=== PATIENT | female | born 1960 | race Caucasian/White ===

== ENCOUNTER 2018-12-12 18:50 | Inpatient (IN) | payer BC ==
[2018-12-12] MEDS ORDERED: NS 0.9% 1000 ML** 1,000 ML IV ONE ×2 (19:14→19:35)
--- NOTE | 2018-12-12 19:14 | ED ---
Abdominal Pain/Female - HPI Summary HPI Summary: This pt is a 58 Y/O F presenting to [facility] from [facility] for diverticulosis. She states that her symptoms started on 12/03/18 when she lost her ability to taste. She stated that on 12/03/18 at night she became nauseas and started vomiting. she started to experience chills which resulted in her taking a hot shower and covering herself with blankets for the weekend. She developed a fever of 100.8 F throughout the weekend from 12/04/18 to 12/05/18. She became fatigued at 12/05/18. She had a urine analysis from her primary care physician and was put on an ABX treatment. She states that on 12/09/18 she had mucus in her stool. She has no alleviating or aggravating factors. She has a PMHx of HTN, and breast cancer. Her family has a Hx of HTN and DM. - History of Current Complaint Chief Complaint: EDAbdPain Stated Complaint: ABDOMINAL ISSUES PER EMS Time Seen by Provider: 12/12/18 19:07 Hx Obtained From: Patient Onset/Duration: Sudden Onset, Lasting Days - 10, Still Present, Worse Since - onset Timing: Constant Severity Initially: Severe Severity Currently: Severe Pain Intensity: 8 Pain Scale Used: 0-10 Numeric Location: Discrete At: RLQ Radiates: No Aggravating Factor(s): Nothing Alleviating Factor(s): Nothing Associated Signs and Symptoms: Positive: Fever - 100.8 F, Urinary Symptoms, Decreased Appetite, Nausea, Vomiting, Other: - lost ability to taste, chills, mucus in stool Allergies/Adverse Reactions: Allergies Allergy/AdvReac Type Severity Reaction Status Date / Time Adhesive Tape Allergy Rash Verified 12/12/18 19:16 ciprofloxacin Allergy Rash And Verified 12/12/18 19:16 Itching clindamycin Allergy Rash And Verified 12/12/18 19:16 Itching pantoprazole Allergy Rash And Verified 12/12/18 19:16 Itching Penicillins Allergy Rash And Verified 12/12/18 19:16 Itching sulfamethoxazole Allergy Rash And Verified 12/12/18 19:16 Itching Home Medications: Home Medications Calcium Citrate/Vitamin D2 [Calcium with Vit D Tablet] 1 each PO DAILY 12/12/18 [History Confirmed 12/12/18] Ferrous Sulfate TAB* 325 mg PO BID 12/12/18 [History Confirmed 12/12/18] Folic Acid 1 mg PO DAILY 12/12/18 [History Confirmed 12/12/18] Furosemide TAB* [Lasix TAB*] 20 mg PO DAILY 12/12/18 [History Confirmed 12/12/18 ] Meloxicam(NF) [Mobic(NF)] 7.5 mg PO DAILY 12/12/18 [History Confirmed 12/12/18] Methotrexate* 50 mg .SEE ORDER ONCE 12/12/18 [History Confirmed 12/12/18] Metoprolol Tartrate TAB* [Lopressor TAB*] 25 mg PO BID 12/12/18 [History Confirmed 12/12/18] Nitrofurantoin Macrocrystals* [Macrodantin 100 mg*] 100 mg PO BID 12/12/18 [ History Confirmed 12/12/18] Omeprazole (Nf) [Prilosec (NF)] 40 mg PO DAILY 12/12/18 [History Confirmed 12/12] predniSONE TAB* [Deltasone TAB*] 5 mg PO DAILY 12/12/18 [History Confirmed 12/12] PMH/Surg Hx/FS Hx/Imm Hx Previously Healthy: Yes Endocrine/Hematology History: Denies: Hx Diabetes Cardiovascular History: Reports: Hx Hypertension Musculoskeletal History: Reports: Hx Rheumatoid Arthritis - Cancer History Cancer Type, Location and Year: Breast cancer, remission 2006 - Surgical History Surgical History: Yes Surgery Procedure, Year, and Place: reconstruction of breast. back surgery. complete hip replacement. foot surgery. 2 C-sections - Immunization History Immunizations Up to Date: Yes Infectious Disease History: No Infectious Disease History: Denies: Traveled Outside the [place] in Last 30 Days - Family History Known Family History: Positive: Hypertension, Diabetes, Other - CA - Social History Occupation: Unemployed Lives: With Family Alcohol Use: Occasionally Hx Substance Use: No Substance Use Type: Reports: None Hx Tobacco Use: Yes Smoking Status (MU): Former Smoker Length of Time of Smoking/Using Tobacco: Quit 1984 Review of Systems Positive: Fever - 100.8, Chills Positive: Abdominal Pain - RLQ, Vomiting, Nausea Positive: other - mucus in stool Neurological: Other - unable to taste, decreased appetite All Other Systems Reviewed And Are Negative: Yes Physical Exam - Summary Physical Exam Summary: Constitutional: Well-developed, Well-nourished, Alert. (-) Distressed Skin: Warm, Dry HENT: Normocephalic; Atraumatic Eyes: Conjunctiva normal Neck: Musculoskeletal ROM normal neck. (-) JVD, (-) Stridor, (-) Tracheal deviation Cardio: Rhythm regular, rate normal, Heart sounds normal; Intact distal pulses; The pedal pulses are 2+ and symmetric. Radial pulses are 2+ and symmetric. (-) Murmur Pulmonary/Chest wall: Effort normal. (-) Respiratory distress, (-) Wheezes, (-) Rales Abd: Soft, Severe lower abdominal tenderness, worse in RLQ, (-) Distension, (-) Guarding, (-) Rebound Musculoskeletal: (-) Edema Lymph: (-) Cervical adenopathy Neuro: Alert, Oriented x3 Psych: Mood and affect Normal Triage Information Reviewed: Yes Vital Signs On Initial Exam: Initial Vitals Temp Pulse Resp BP Pulse Ox 98.5 F 126 18 136/111 96 12/12/18 18:54 12/12/18 18:54 12/12/18 18:54 12/12/18 18:54 12/12/18 18:54 Vital Signs Reviewed: Yes Diagnostics - Vital Signs Vital Signs Temp Pulse Resp BP Pulse Ox 12/12/18 18:54 98.5 F 126 18 136/111 96 - Laboratory Result Diagrams: 12/14/18 05:36 12/14/18 05:36 Lab Statement: Any lab studies that have been ordered have been reviewed, and results considered in the medical decision making process. Abdominal Pain Fem Course/Dx - Course Course Of Treatment: Patient was transferred from an outside hospital with pelvic abscess likely due to a missed appendicitis. Upon arrival, patient is tachycardic but overall well-appearing with no signs of peritonitis. Patient had a normal lactate here. Patient was given IV fluids and antibiotics. Surgery was consult today and they recommended talking to IR to see if the abscess was amenable to drainage. IR recommended a repeat CT scan with oral and rectal contrast. He did not think abscess was got to be minimal to drainage and did not think was emergency room took her overnight. Patient is admitted to medicine for further management. - Diagnoses Provider Diagnoses: Pelvic abscess, Ruptured appendicitis - Provider Notifications Discussed Care Of Patient With: Gabby Weeks Time Discussed With Above Provider: 21:45 Instructed by Provider To: Admit As Inpatient - Pending a surgery consult Admit/Transition Orders Completed By ED Provider: Yes Discharge ED - Sign-Out/Discharge Documenting (check all that apply): Patient Departure - admitted Patient Received Moderate/Deep Sedation with Procedure: No - Discharge Plan Condition: Stable Disposition: ADMITTED TO [facility] - Billing Disposition and Condition Condition: STABLE Disposition: Admitted to [facility] - Attestation Statements Document Initiated by Scribe: Yes Documenting Scribe: Tito Rice Provider For Whom [place] is Documenting (Include Credential): Manuel Carrion MD Scribe Attestation: Tito Castillo, scribed for Manuel Carrion MD on 12/14/18 at 1118. Scribe Documentation Reviewed: Yes Provider Attestation: The documentation as recorded by the Tito venegas accurately reflects the service I personally performed and the decisions made by Manuel ferro MD Status of Scribe Document: Viewed
[2018-12-12] MEDS ORDERED: metroNIDAZOLE IV 500 MG/100ML* 500 MG/100 ML BAG IVPB ONE (19:25)
[2018-12-12] MEDS ORDERED: ED cefTRIAXone 1 GM/50 ML 1 GM/50 ML PREMIX.SET IVPB ONE (19:25)
[2018-12-12] MEDS ORDERED: Morphine INJ* 2 MG/ML 1 ML SYRINGE (TWO MG - NEW SYRINGE VERSION) IV PRN (23:35)
[2018-12-12] MEDS ORDERED: PROCHLORPERAZINE INJ 5 MG/ML 2 ML VIAL IV PRN (23:35)
[2018-12-12] MEDS: LACTATED RINGERS IV ONE (23:36)
[2018-12-13 00:30] LABS: Hematocrit 39 % (35-47); Hemoglobin 12.6 g/dL (12.0-16.0); Mean Corpuscular HGB Conc 33 g/dL (31-36); Mean Corpuscular Hemoglobin 31 pg (27-31); Mean Corpuscular Volume 95 fL (80-97); Mean Platelet Volume 6.9 fL (7.4-10.4); Platelet Count 295 10^3/uL (150-450); Red Blood Count 4.07 10^6 /uL (3.70-4.87); Red Cell Distribution Width 18 % (10-15); White Blood Count 23.5 10^3/uL (3.5-10.8)
[2018-12-13 00:47] LABS: Albumin/Globulin Ratio 1.1 (1-3); BUN/Creatinine Ratio 10.9 (8-20); Calcium 8.3 mg/dL (8.6-10.3); EGFR African American 115.7 (>60); EGFR Non-African American 95.6 (>60); Globulin 2.8 g/dL (2-4); Potassium 3.8 mmol/L (3.5-5.0); Total Bilirubin 0.7 mg/dL (0.2-1.0); Total Protein 5.8 g/dL (6.4-8.9)
[2018-12-13] MEDS: LACTATED RINGERS IV ONE ×3 (01:06→03:53)
[2018-12-13 01:07] LABS: ABS Eosinophils 0.1 10^3/ul (0-0.6); ABS Lymphocytes 1.8 10^3/ul (1.0-4.8); ABS Monocytes 2.3 10^3/ul (0-0.8); ABS Neutrophils 19.1 10^3/ul (1.5-7.7); Eosinophil % 0.6 %; Lymphocyte % 7.9 %; Nucleated Red Blood Cells % 0.1
[2018-12-13] MEDS: Hydrocortisone INJ* 100 MG VIAL IV SCH ×3 (01:08→21:09)
[2018-12-13] MEDS: Cefepime 2 GM in Dextrose(*) 2 GM/50 ML BAG IV SCH ×3 (01:20→22:44)
[2018-12-13 01:22] LABS: Urine Appearance Clear; Urine Bacteria Absent (Absent); Urine Bilirubin Negative (Negative); Urine Blood Negative (Negative); Urine Color Yellow; Urine Glucose Negative (Negative); Urine Ketones Negative (Negative); Urine Nitrite Negative (Negative); Urine Protein Negative (Negative); Urine Red Blood Cell Absent (Absent); Urine Squamous Epithelial Cell Present (Absent); Urine Urobilinogen Negative (Negative); Urine White Blood Cell Trace(0-5/hpf) (Absent)
--- NOTE | 2018-12-13 02:19 | CONS ---
CONSULTATION REPORT: DATE OF CONSULT: 12/12/18 REASON FOR CONSULTATION: Multiple pelvic abscesses. HISTORY OF PRESENT ILLNESS: Ely Richardson is a 58-year-old female with a history of rheumatoid arthritis on methotrexate and prednisone, who reports onset of right lower quadrant abdominal pain approximately 10 to 11 days ago. 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 The patient reports that she had been on antibiotics for right leg pain and concern for infection as she had hip replacement, but the antibiotics were completed about 12 days ago. The patient reports poor appetite, but no issues with nausea, vomiting, or diarrhea. She states that the pain became progressively more severe. She was seen by her primary care provider, Juno Anthony and ended up having diagnosis of urinary tract infection for which she was placed on additional antibiotics. She had been taking those for the past 4 days. Her pain continued to worsen and her decided to bring her to the emergency room at [facility] today. There, she had laboratory evaluation and radiographic evaluation with findings of leukocytosis at 26,[address] scan without contrast that demonstrated pelvic abscesses. The patient does report a history of fever to 100.9. From [facility], she was transferred to [facility] Emergency Department and evaluation proceeded with a repeat CT scan of the abdomen and pelvis with rectal and oral contrast. On that study, the patient was noted to have multiple pelvic collections and no clear etiology was identified. The patient is being admitted to the hospitalist service for IV antibiotics and surgical consultation was requested. PAST MEDICAL HISTORY: Significant for: 1. Rheumatoid arthritis. 2. Breast cancer. 3. Hypertension. 4. Colon polyps, she had a colonoscopy in 2014, is due next year. PAST SURGICAL HISTORY: 1. Right total hip replacement. 2. section x2. 3. Mastectomy with TRAM flap reconstruction. HOME MEDICATIONS: 1. Prednisone 5 mg p.o. daily. 2. Ferrous sulfate 325 mg b.i.d. 3. Methotrexate 2.5 mg injection. 4. Omeprazole 40 mg daily. 5. Amitriptyline 25 mg twice daily. 6. Meloxicam 7.5 mg daily. 7. Folate 1 mg daily. 8. Furosemide 20 mg daily. 9. Metoprolol 25 mg twice daily. 10. Calcium with vitamin D and K 1 tablet daily. 11. Macrodantin 100 mg p.o. twice daily. ALLERGIES: Allergies are reported to multiple antibiotics including CIPRO, CLINDAMYCIN, PENICILLINS, BACTRIM. She also has allergy to PANTOPRAZOLE, which causes hives and surgical tape, which causes blisters. SOCIAL HISTORY: She is an ex-smoker who quit in 1984. She occasionally drinks alcohol. Denies drug use. 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 FAMILY HISTORY: Her mother had breast cancer. Sister had breast cancer. Father was healthy. REVIEW OF SYSTEMS: A 14-point review of systems was completed and significant for the above mentioned issues. Otherwise is negative. She specifically denies inflammatory bowel disease, Crohn's disease, colitis. PHYSICAL EXAMINATION: Physical examination reveals a 5 feet 5 inches female, 235 pounds, BMI 31.9. Vital signs: Temperature of 98.5 initially, then 97.2 with pulse of 116; respirations of 20; blood pressure 111/74; O2 sat on room air of 94%. Head is normocephalic and atraumatic. Sclerae anicteric. Abdomen has a large transverse lower abdominal scar and periumbilical scar. Bowel sounds are present. Abdomen is soft. There is tenderness in the right lower quadrant greater than left lower quadrant. No tenderness to percussion. Extremities are warm. DIAGNOSTIC STUDIES/LAB DATA: As reported above, WBCs are 26. Lactate performed at [facility] was 1.3. CT imaging was reviewed by me. IMPRESSION: A 58-year-old female with 10- to 11-day history of right lower quadrant abdominal pain, progressive and now finding of multiple abscesses on CT imaging with tachycardia, leukocytosis, and this is most suspicious for delayed presentation of appendicitis with complication of pelvic abscess. PLAN/RECOMMENDATIONS: The patient is being admitted for IV antibiotics and we kept n.p.o. and given IV hydration. I will review the imaging with Radiology in the morning to see if there is any benefit to percutaneous drainage. Otherwise, the patient will be likely best served with surgical exploration to deal with multiple abscesses and treat the etiology of infection. I did discuss this with the patient and her who accompanied her. We will follow closely. [id number]/CPS #: [id number] [facility] MEDICAL CENTERIvy
[2018-12-13] MEDS: metroNIDAZOLE IV 500 MG/100ML* 500 MG/100 ML BAG IVPB SCH ×4 (03:50→21:16)
[2018-12-13] MEDS: Heparin VIAL(*) 5000 UNITS/ML VIAL (FIVE THOUSAND) SUBCUT SCH ×3 (05:20→22:51)
--- NOTE | 2018-12-13 05:38 | HP ---
CC: Juno Anthony Jr, PA-C, [facility] * HISTORY AND PHYSICAL: DATE OF ADMISSION: 12/12/18 PRIMARY CARE PROVIDER: Juno Anthony Jr, PA-C, at [facility]. CHIEF COMPLAINT: Abdominal pain. HISTORY OF PRESENT ILLNESS: Ms. Richardson is a 58-year-old female with a past medical history of obesity; breast cancer, status post mastectomy, chemo and radiation; arthritis, who states around 12/03/18, she had a change in the taste in her mouth followed by nausea and vomiting. The next day, she started to have chills, fever that she measures at 100.8 and increased urinary frequency. She states that usually when she has an UTI, she has increased frequency with dysuria but this time she just had increased frequency. She reports going to her primary care provider, being diagnosed with a urinary tract infection and was started on nitrofurantoin. The patient states that the urinary frequency improved, but the abdominal pain became worse especially on her right lower quadrant that she rates at 8/10. She was seen at [facility] with this complaint and she denied vaginal discharge, vomiting, or diarrhea. A CT of the abdomen without contrast showed poorly defined air fluid collection in the central pelvis slightly to the right of midline measuring 4.8 cm, difficult to distinguish from adjacent unopacified thick-walled small bowel loops, and a contiguous approximately 5- to 6-cm collection posterior to the bladder dome either obscuring or associated with the uterine fullness. Laboratory tests done at that time revealed a white cell count of 26,000 and the patient was also tachycardic, so she was sent to our emergency room for further evaluation. At the time of my interview, she states that she is feeling better, but she had received pain medication, so her pain was down to a 4. PAST MEDICAL/SURGICAL HISTORY: 1. Breast cancer, status post mastectomy with reconstruction. The reconstruction was done with graft obtained from her abdomen. Chemo and radiation therapy. The patient states she was on tamoxifen for 10 years and for the past 2 years has not needed any further medication. 2. Hypertension. 3. Rheumatoid arthritis. 4. Status post spinal surgery. 5. Status post right hip placement. 6. Status post 2 C-sections. MEDICATION LIST: 1. Amitriptyline 25 mg p.o. b.i.d. 2. Calcium plus vitamin D 1 tablet p.o. daily. 3. Ferrous sulfate 325 mg p.o. b.i.d. 4. Folic acid 1 mg p.o. daily. 5. Furosemide 20 mg p.o. daily. 6. Meloxicam 7.5 mg p.o. daily. 7. Methotrexate 50 mg weekly. 8. Metoprolol tartrate 25 mg p.o. b.i.d. 9. Nitrofurantoin 100 mg p.o. b.i.d. 10. Omeprazole 40 mg p.o. daily. 11. Prednisone 5 mg p.o. daily. ALLERGIES: The patient experienced rashes with ADHESIVE TAPE, CIPROFLOXACIN, CLINDAMYCIN, PANTOPRAZOLE, PENICILLIN, SULFAMETHOXAZOLE. FAMILY HISTORY: There is a positive family history of hypertension and diabetes. SOCIAL HISTORY: No history of alcohol or drug use. The patient is a former smoker, she quit in 1984. Surrogate decision maker is her , Cory Richardson, phone number is [phone]. REVIEW OF SYSTEMS: A 14-point review of systems was performed, and all the pertinent negatives and positive findings are in the HPI. PHYSICAL EXAMINATION GENERAL: The patient is a pleasant obese lady, lying in the ED stretcher, in no acute distress. VITAL SIGNS: Temperature 97.2, heart rate is 116, respiratory rate is 20, oxygen saturation 94% on room air, blood pressure is 111/74. HEENT: Pupils are equal. Dry mucous membranes. CHEST: Breath sounds bilaterally with no added sounds, diminished in bases. CVS: Normal S1, S2. Regular rate and rhythm. ABDOMEN: Obese, soft with right lower quadrant and left lower quadrant tenderness, but there is no guarding, no rebound. Bowel sounds are present. The patient has old surgical scar extending from right lower quadrant, epigastrium, and left lower quadrant from her breast reconstruction. There was the graft area. She has a palpable nodule in the right lower quadrant that appears to be related to the surgical scar from that procedure. EXTREMITIES: No edema. NEURO: She is alert and oriented x3. Able to move all 4 extremities. DIAGNOSTIC STUDIES/LAB DATA: At [facility], the patient had a chemistry that showed a sodium of 135, potassium of 3.7, chloride of 99, bicarb 26, BUN of 10, creatinine of 0.9, lactic acid was 1.5, glucose 124, calcium 9.5 , magnesium 1.7. LFTs showed a total bilirubin of 1. AST of 20, ALT of 6, alk phos of 108. Troponin was 0.01. CBC showed a WBC of 26.2, hemoglobin of 14, hematocrit of 40, platelets of 381 with 87% neutrophils. Urinalysis showed trace LE. CT abdomen and pelvis without contrast done at [facility] showed pelvic abscesses and free fluid, source not identified. She underwent a CT with p.o. and rectal contrast in our emergency room that showed minimal sigmoid diverticulosis with question of mild mid sigmoid diverticulitis. Multilocular collection of fluid with some areas of gas consistent with multilocular abscesses within the pelvis with some tangential contact to the sigmoid colon and may be related to prior diverticulitis, status post hysterectomy. ASSESSMENT AND PLAN: Ms. Richardson is a 58-year-old female with a past medical history of obesity; hypertension; rheumatoid arthritis; breast cancer, status post mastectomy, chemo and radiation, who was transferred to our emergency room with sepsis secondary to intra-abdominal abscesses. 1. Sepsis. The patient meets sepsis criteria with tachycardia and leukocytosis. At this point, there is no sign of end-organ damage. Source is the intra-abdominal process. She will receive aggressive IV fluid resuscitation. We will monitor her CBC, BMP, and lactic acid. 2. Intra-abdominal abscesses. Etiology is unclear at this time. At [facility], there is some question that this could be associated with appendicitis , but she also has diverticulosis. In any case, considering her allergies, the patient will be started on cefepime and metronidazole for this intra-abdominal process. Surgery consultation was requested with Dr. Hernández and recommendation at this point is to see if Interventional Radiology will be able to drain those abscesses. I contacted Dr. Resendiz and he was already aware on the need for IR drainage of the abscess. We will continue pain management and I will keep the patient n.p.o. for now. 3. Rheumatoid arthritis. Her methotrexate will be held in the setting of infection. She has been on the steroids chronically, so I will change her to hydrocortisone IV to try to support her blood pressure. 4. Hypertension. The patient's blood pressure is normal but on the lower side at this time, so I am going to hold her metoprolol. 5. DVT prophylaxis. The patient has a score of 4 on DVT Prophylaxis Risk Assessment Guide and she will be started on subcutaneous heparin. 6. Code status is full. TIME SPENT: Approximately 60 minutes was spent with the patient interview, medical records review, physical examination to complete the admission, more than half of this time was spent [id number] with the patient and coordination of care. [id number]/CPS #: [id number] [facility]TDD
[2018-12-13 06:48] LABS: ABS Lymphocytes 0.7 10^3/ul (1.0-4.8); ABS Monocytes 0.7 10^3/ul (0-0.8); ABS Neutrophils 17.9 10^3/ul (1.5-7.7); Hematocrit 34 % (35-47); Hemoglobin 11.5 g/dL (12.0-16.0); Lymphocyte % 3.5 %; Mean Corpuscular HGB Conc 34 g/dL (31-36); Mean Corpuscular Hemoglobin 31 pg (27-31); Mean Corpuscular Volume 92 fL (80-97); Mean Platelet Volume 7.3 fL (7.4-10.4); Platelet Count 295 10^3/uL (150-450); Red Blood Count 3.66 10^6 /uL (3.70-4.87); Red Cell Distribution Width 17 % (10-15); White Blood Count 19.3 10^3/uL (3.5-10.8)
[2018-12-13 07:01] LABS: Calcium 8.7 mg/dL (8.6-10.3); EGFR African American 140.8 (>60); EGFR Non-African American 116.4 (>60); Potassium 3.6 mmol/L (3.5-5.0)
[2018-12-13] MEDS ORDERED: Amitriptyline TAB* 25 MG PO SCH (09:00)
[2018-12-13] MEDS ORDERED: Metoprolol Tartrate IV* 1 MG/ML 5 ML VIAL IV PRN (09:11)
[2018-12-13] MEDS: CMCS: Omeprazole CAP (NF) 20 MG CAP.DR PO SCH (09:24)
--- NOTE | 2018-12-13 10:07 | PN ---
Subjective Date of Service: 12/13/18 Interval History: Patient has no complaints this morning. Patient tells me she has not had abdominal pain since receiving morphine at 1 AM. Patient is scheduled to go to the OR this afternoon. She denies abd pain, nausea, fever/chills, chest pain, difficulty breathing. Patient reported to MARY Mary that she no longer takes amitriptyline and her home med list has been updated. Objective Active Medications: Amitriptyline HCl (Elavil Tab*) 25 mg PO BID [facility] Last Admin: 12/13/18 09:34 Dose: Not Given Heparin Sodium (Porcine) (Heparin Vial(*)) 5,000 units SUBCUT Q8HR [facility] Last Admin: 12/13/18 05:20 Dose: 5,000 units Hydrocortisone Sodium Succinate (Solu-Cortef*) 100 mg IV Q8H [facility] Last Admin: 12/13/18 09:25 Dose: 100 mg Cefepime HCl (Maxipime 2 Gm In Dextrose Duplex (*)) 2 gm in 50 mls @ 100 mls/ hr IV Q12H [facility] Last Admin: 12/13/18 01:20 Dose: 100 mls/hr Metronidazole/Sodium Chloride (Flagyl 500 Mg Ivpb*) 500 mg in 100 mls @ 100 mls /hr IVPB Q8H [facility] Last Admin: 12/13/18 03:50 Dose: 100 mls/hr Metoprolol Tartrate (Lopressor Iv*) 5 mg IV Q6H PRN PRN Reason: tachycardia or hypertension Morphine Sulfate (Morphine Inj (Syringe))*) 2 mg IV Q1H PRN PRN Reason: SEVERE PAIN Last Admin: 12/13/18 01:14 Dose: 2 mg Omeprazole (Prilosec Cap* (Nf)) 40 mg PO DAILY [facility] Last Admin: 12/13/18 09:24 Dose: 40 mg Prochlorperazine Edisylate (Compazine Inj*) 5 mg IV Q6H PRN PRN Reason: NAUSEA/VOMITING Vital Signs - 8 hr 12/13/18 12/13/18 12/13/18 02:10 03:45 07:15 Temperature 98.2 F 97.8 F Pulse Rate 108 89 Respiratory 18 24 20 Rate Blood Pressure 110/57 110/65 (mmHg) O2 Sat by Pulse 93 93 Oximetry 12/13/18 08:00 Temperature Pulse Rate Respiratory 20 Rate Blood Pressure (mmHg) O2 Sat by Pulse Oximetry Oxygen Devices in Use Now: None Appearance: Obese, white female, laying in bed, appearing in NAD Eyes: No Scleral Icterus, PERRLA Ears/Nose/Mouth/Throat: Mucous Membranes Moist Neck: NL Appearance and Movements; NL JVP Respiratory: Symmetrical Chest Expansion and Respiratory Effort, Clear to Auscultation Cardiovascular: NL Sounds; No Murmurs; No JVD, RRR Abdominal: NL Sounds; No Tenderness; No Distention Extremities: No Edema, No Clubbing, Cyanosis Skin: No Rash or Ulcers Neurological: Alert and Oriented x 3, NL Muscle Strength and Tone Result Diagrams: 12/13/18 06:37 12/13/18 06:37 Assess/Plan/Problems-Billing Assessment: 58 yo female with PMHx breast CA s/p mastectomy, XRT, and chemo; obesity; RA on chronic prednisone presents from [facility] with imaging concerning for multiple intra-abdominal abscesses. - Patient Problems (1) Sepsis Current Visit: Yes Status: Acute Comment: -secondary to intra-abdominal abscesses -presenting signs: tachycardia and leukocytosis -leukocytosis is downtrending. Tachycardia persisted overnight but is resolved this morning -remains afebrile (2) Intra-abdominal abscess Current Visit: Yes Status: Acute Code(s): K65.1 - PERITONEAL ABSCESS SNOMED Code(s): 33722172 Comment: -CT without contrast performed at [facility] demonstrated multiple pelvic abscesses -appreciate general surgery consult. Dr. Hernández suspects this is a complication of appendicitis -patient remains NPO for surgery today -continue cefepime, prn morphine, and prn compazine -abdomen exam is benign today and patient is comfortable (3) Rheumatoid arthritis Current Visit: Yes Status: Acute Code(s): M06.9 - RHEUMATOID ARTHRITIS, UNSPECIFIED SNOMED Code(s): 50447358 Comment: -holding home MTX in setting of infection -patient takes chronic prednisone for RA. Continuing IV hydrocortisone while patient is NPO (4) DVT prophylaxis Current Visit: Yes Status: Acute Code(s): Z29.9 - ENCOUNTER FOR PROPHYLACTIC MEASURES, UNSPECIFIED SNOMED Code(s): 840437787 Comment: -continue heparin subq TID (5) Full code status Current Visit: Yes Status: Acute Code(s): Z78.9 - OTHER SPECIFIED HEALTH STATUS SNOMED Code(s): 397593452
[2018-12-13] MEDS: Lactated Ringers 1000 ML Bag* 1,000 ML IV SCH ×2 (10:48→20:15)
[2018-12-13] MEDS ORDERED: Metoprolol Tartrate IV* 1 MG/ML 5 ML VIAL IV ONE (12:48)
--- NOTE | 2018-12-13 12:55 | PN ---
Progress Note - Progress Note Date of Service: 12/13/18 SOAP: Subjective: She feels better after IV fluid and receiving pain meds No N/V Pain mainly in right lower quadrant Objective: Temp Pulse Resp BP Pulse Ox 97.5 F 91 20 133/80 94 12/13/18 11:15 12/13/18 11:15 12/13/18 11:15 12/13/18 11:15 12/13/18 11:15 Intake & Output 12/11/18 12/12/18 12/13/18 12/14/18 06:59 06:59 06:59 06:59 Intake Total 4567 Output Total 700 Balance 3867 Weight 244 lb 11.2 oz Intake: IV Fluids 4397 LR 3197 IVPB 170 LR 170 Oral 0 Output: Urine 700 PEX: Comfortable Lungs are cler Abd is soft and slightly distended. Bowel sounds are present but hypoactive. Lower suprapubic transverse incision iliac crest to iliac crest, circular incision around the umbilicus. Tender lower abdomen with guarding, worse on the right lower quadrant. Laboratory Results - last 24 hr 12/12/18 12/13/18 12/13/18 20:58 00:21 00:21 WBC 23.5 H RBC 4.07 Hgb 12.6 Hct 39 MCV 95 MCH 31 MCHC 33 RDW 18 H Plt Count 295 MPV 6.9 L Neut % (Auto) 81.4 Lymph % (Auto) 7.9 Carver % (Auto) 10.0 Eos % (Auto) 0.6 Baso % (Auto) 0.1 Absolute Neuts (auto) 19.1 H Absolute Lymphs (auto) 1.8 Absolute Monos (auto) 2.3 H Absolute Eos (auto) 0.1 Absolute Basos (auto) 0.0 Absolute Nucleated RBC 0.0 Nucleated RBC % 0.1 Sodium 135 Potassium 3.8 Chloride 105 Carbon Dioxide 21 L Anion Gap 9 BUN 7 Creatinine 0.64 Est GFR ( Amer) 115.7 Est GFR (Non-Af Amer) 95.6 BUN/Creatinine Ratio 10.9 Glucose 99 Lactic Acid 1.3 Calcium 8.3 L Total Bilirubin 0.70 AST 15 ALT 4 L Alkaline Phosphatase 82 Total Protein 5.8 L Albumin 3.0 L Globulin 2.8 Albumin/Globulin Ratio 1.1 Urine Color Urine Appearance Urine pH Ur Specific [place] Urine Protein Urine Ketones Urine Blood Urine Nitrate Urine Bilirubin Urine Urobilinogen Ur Leukocyte Esterase Urine WBC (Auto) Urine RBC (Auto) Ur Squamous Epith Cells Urine Bacteria Urine Glucose 12/13/18 12/13/18 12/13/18 00:22 00:45 06:37 WBC 19.3 H RBC 3.66 L Hgb 11.5 L Hct 34 L MCV 92 MCH 31 MCHC 34 RDW 17 H Plt Count 295 MPV 7.3 L Neut % (Auto) 92.7 Lymph % (Auto) 3.5 Carver % (Auto) 3.6 Eos % (Auto) 0.0 Baso % (Auto) 0.2 Absolute Neuts (auto) 17.9 H Absolute Lymphs (auto) 0.7 L Absolute Monos (auto) 0.7 Absolute Eos (auto) 0.0 Absolute Basos (auto) 0.0 Absolute Nucleated RBC 0.0 Nucleated RBC % 0.0 Sodium Potassium Chloride Carbon Dioxide Anion Gap BUN Creatinine Est GFR ( Amer) Est GFR (Non-Af Amer) BUN/Creatinine Ratio Glucose Lactic Acid 0.5 Calcium Total Bilirubin AST ALT Alkaline Phosphatase Total Protein Albumin Globulin Albumin/Globulin Ratio Urine Color Yellow Urine Appearance Clear Urine pH 6.0 Ur Specific [place] 1.030 Urine Protein Negative Urine Ketones Negative Urine Blood Negative Urine Nitrate Negative Urine Bilirubin Negative Urine Urobilinogen Negative Ur Leukocyte Esterase Trace A Urine WBC (Auto) Trace(0-5/hpf) Urine RBC (Auto) Absent Ur Squamous Epith Cells Present A Urine Bacteria Absent Urine Glucose Negative 12/13/18 06:37 WBC RBC Hgb Hct MCV MCH MCHC RDW Plt Count MPV Neut % (Auto) Lymph % (Auto) Carver % (Auto) Eos % (Auto) Baso % (Auto) Absolute Neuts (auto) Absolute Lymphs (auto) Absolute Monos (auto) Absolute Eos (auto) Absolute Basos (auto) Absolute Nucleated RBC Nucleated RBC % Sodium 137 Potassium 3.6 Chloride 109 Carbon Dioxide 24 Anion Gap 4 BUN 7 Creatinine 0.54 Est GFR ( Amer) 140.8 Est GFR (Non-Af Amer) 116.4 BUN/Creatinine Ratio 13.0 Glucose 126 H Lactic Acid Calcium 8.7 Total Bilirubin AST ALT Alkaline Phosphatase Total Protein Albumin Globulin Albumin/Globulin Ratio Urine Color Urine Appearance Urine pH Ur Specific [place] Urine Protein Urine Ketones Urine Blood Urine Nitrate Urine Bilirubin Urine Urobilinogen Ur Leukocyte Esterase Urine WBC (Auto) Urine RBC (Auto) Ur Squamous Epith Cells Urine Bacteria Urine Glucose CT reviewed with radiology Multiple pelvic abscesses and free fluid, diverticular disease but no evidence of diverticulitis and do not appear to be associated with fluid/abscess collections. Appendix not clearly defined- ? free appendicolith in the pelvis. Assessment: Abdominal pain with pelvic abscesses/fluid collection, leukocytosis probably secondary to perforated appendicitis by history, delayed presentation. Plan: Reviewed care with patient and her and IR Dr. Resendiz-there does not appear to be an IR window for drainage and there appear to be several collections. Given the fact that she is on Methotrexate and prednisone she has been having abdominal pain for almost 2 weeks I feel the appropriate management is to proceed with an exploratory laparotomy with drainage of multiple abscesses and appendectomy. I do not feel that this process will respond to IV abx and I discussed this in more detail with her and she would like to proceed with surgery and gives her consent. Exploratory laparotomy with abscess drainage and appendectomy today. The procedure was discussed with her in detail, and the risks of, but not limited to, of bleeding, infection, abscess, bowel resection, ostomy, injury to peritoneal and retroperitoneal structures, risks of GA, blood clot, pulmonary embolism.
[2018-12-13] MEDS ORDERED: Bupivacaine 0.25% SDV PF* 10 ML VIAL INJ ONE (14:31)
[2018-12-13] MEDS ORDERED: Sodium Citrate/Citric Acid* 15 ML UDC ONE (14:36)
[2018-12-13] MEDS ORDERED: Midazolam* 1 MG/ML 2 ML VIAL (2 MG) ONE (14:55)
[2018-12-13] MEDS ORDERED: Propofol* 10 MG/ML 20 ML BTL ONE (14:55)
[2018-12-13] MEDS ORDERED: Succinylcholine* 20 MG/ML 10 ML VIAL ONE (14:55)
[2018-12-13] MEDS ORDERED: fentaNYL* 50 MCG/ML 5 ML VIAL (250 MCG VIAL) ONE (14:55)
[2018-12-13] MEDS ORDERED: Lidocaine 2% PF * 5 ML VIAL ONE (14:55)
[2018-12-13] MEDS ORDERED: Rocuronium* 10 MG/ML VIAL ONE (15:50)
[2018-12-13] MEDS ORDERED: fentaNYL* 50 MCG/ML 2 ML VIAL (100 MCG VIAL) ONE ×5 (15:53→19:27)
[2018-12-13] MEDS ORDERED: Ondansetron INJ* 2 MG/ML VIAL ONE (16:45)
[2018-12-13] MEDS ORDERED: PROCHLORPERAZINE INJ 5 MG/ML 2 ML VIAL ONE (16:46)
[2018-12-13] MEDS ORDERED: Sugammadex * 500 MG/5 ML VIAL IV PUSH ONE (16:49)
--- NOTE | 2018-12-13 17:07 | OP ---
Operative Report - Blank - Operative Report Date of Operation: 12/13/18 Note: OPERATIVE REPORT Pre-op: Abdominal pain, pelvic abscess, Leukocytosis Post-Op: Same, normal appearing appendix, pelvic abscess, pelvic inflammation Procedure:Open appendectomy, drainage of pelvic abscess, drain placement Surgeon: MD Travon Asst: Kelli Luong NP Anes: general with Dr. Rae IVF:1.7 liters of crystalloid EBL:min Specimen: Appendix Drain: #7 AHSAN drain Wound: 4 Findings: Pelvic abscess with surrounding inflammation, appendix with minimal inflammation, sigmoid colon unremarkable, small bowel and cecum unremarkable To PACU
[2018-12-13] MEDS ORDERED: Morphine 4 MG/ML VIAL (1 ml) 4 MG/ML VIAL IV PRN (17:31)
[2018-12-13] MEDS ORDERED: DiMENhydriNATE IV* 50 MG/ML VIAL IV PUSH PRN (17:31)
[2018-12-13] MEDS ORDERED: Ketorolac INJ* 30 MG/ML 1 ML VIAL IV PRN (17:31)
[2018-12-13] MEDS ORDERED: Naloxone* 0.4 MG/ML 1 ML VIAL IV PRN (17:31)
[2018-12-13] MEDS: fentaNYL* 50 MCG/ML 2 ML VIAL (100 MCG VIAL) IV PRN ×5 (17:40→19:28)
[2018-12-13] MEDS ORDERED: Ketorolac INJ* 30 MG/ML 1 ML VIAL ONE (17:52)
[2018-12-13] MEDS ORDERED: HYDROmorphone INJ1* 1 MG/ML SYRINGE IV SLOW PU PRN (20:34)
[2018-12-13] MEDS ORDERED: Lactated Ringers 1000 ML Bag* 1,000 ML IV SCH (21:00)
[2018-12-13] MEDS: oxyCODONE/Acetamin 5/325 MG* TAB PO PRN (21:01)
[2018-12-14] MEDS: Ketorolac INJ* 30 MG/ML 1 ML VIAL IV PUSH SCH ×4 (00:26→18:13)
[2018-12-14] MEDS: Hydrocortisone INJ* 100 MG VIAL IV SCH ×2 (00:30→08:47)
[2018-12-14 02:52] LABS: Urine Appearance Clear; Urine Bacteria Absent (Absent); Urine Bilirubin Negative (Negative); Urine Blood 2+ (Negative); Urine Color Amber; Urine Glucose Negative (Negative); Urine Ketones Trace (Negative); Urine Nitrite Negative (Negative); Urine Protein 1+(30 mg/dL) (Negative); Urine Red Blood Cell 3+(>10/hpf) (Absent); Urine Specific Gravity 1.031 (1.010-1.030); Urine Urobilinogen Negative (Negative); Urine White Blood Cell 2+(11-20/hpf) (Absent)
--- NOTE | 2018-12-14 03:14 | OP ---
CC: KASH Antoine at [facility] * DATE OF OPERATION: 12/13/18 - ROOM #332 DATE OF : 62 SURGEON: Thiago Cool MD MDS COORDINATOR: Jerrica Luong NP ANESTHESIOLOGIST: Dr. Rae ANESTHESIA: General with local. PRE-OP DIAGNOSIS: Pelvic abscesses and right lower quadrant abdominal pain, probably acute appendicitis. POST-OP DIAGNOSES: 1. Pelvic abscess and free fluid. 2. Abdominal pain. 3. Essentially normal appearing appendix. 4. Inflammatory process in the lower abdomen with no obvious perforation. OPERATIVE PROCEDURES: Laparotomy with open appendectomy, drainage of pelvic abscess and placement of #7-Polish AHSAN drain. ESTIMATED BLOOD LOSS: Less than 50 cc. IV FLUIDS: 1.7 L crystalloid. WOUND CLASSIFICATION: IV. SPECIMENS: 1. Appendix. 2. Pelvic fluid for Gram stain and culture. DRAIN: #7 AHSAN drain into the pelvis. FINDINGS: The appendix was involved with a significant amount of inflammation in the mid and right pelvis. This was surrounded by small bowel with the fibrinous exudate and a small abscess which was emptied and which was accessed and which was opened and drained. However, the appendix did not appear to be gangrenous or show signs of perforation. The cecum, terminal ileum were all unremarkable. Sigmoid colon and its visualized areas showed no evidence of disease. There was some areas of the mesentry of the small bowel with significant fibrinous exudate but no obvious small bowel perforation or necrosis in the last 3 to 4 feet of the ileum. Remainder of the small bowel appeared to be unremarkable. BRIEF HISTORY: Ms. Ely Richardson is a 58-year-old woman who presented initially to [facility] Emergency Room with 10 to 12 days of abdominal discomfort. She had been seen in the primary care doctor's office, concerned about having a urinary tract infection, was started on antibiotics. She takes methotrexate and prednisone for her rheumatoid arthritis. Her pain progressively worsened over the past several days to the point where she was not able to work and presented to the emergency room, was noted to have a leukocytosis up in the 27,[address] scan which showed apparent fluid collections in the pelvis with probable abscesses. There did not appear to be evidence of sigmoid diverticulitis, extraluminal air or upper abdominal pathology. She was transferred to the Emergency Room here at [facility] and underwent another CT scan with rectal contrast which showed no evidence of rectal perforation or diverticulitis, and it was felt that there was fluid collection as well as probable abscess formation in the pelvis not amenable to interventional radiology. She was admitted to the hospitalist service and was started on broad spectrum IV antibiotics. Her white blood cell count is improved and she has been aggressively hydrated. She is still having significant pelvic, suprapubic, and right lower quadrant abdominal pain after being seen in surgical consultation. Decision has been made to proceed to the operating room for a laparotomy for what is presumed to be a perforated appendix. The patient has had a left-sided breast cancer and has had left TRAM flap as well as abdominoplasty almost 16 years ago. She has had several sections in the past. After discussion and the patient's history, physical exam and the CT scan findings, it has been recommended that she undergo a laparotomy. The procedure was discussed with the patient and her and the risks of but not limited to bleeding, infection, intraabdominal abscess formation, injury to peritoneal and retroperitoneal structures, possible bowel resection, possible ostomy depending on the findings were all explained. Anesthetic risks and blood clot risks were also explained. PROCEDURE: Written informed consent was obtained. The patient was taken to the operating room placed in the supine position. Intravenous antibiotics had been administered. The abdomen was marked with indelible ink. Sequential compression devices and a warming blanket were applied. General anesthesia was administered. A Christie catheter was inserted. The entire abdomen was prepped and draped in usual sterile fashion. Time-out verification was completed. Initially a vertical incision was made just below the umbilicus to the pubis and the peritoneal cavity was entered under direct vision. There was some turbid thin fluid in the free abdomen and there were some omental adhesions mainly on the right side. There also appeared to be evidence that there was a fine mesh in the abdominal wall apparently from the previous TRAM flap reconstruction, but this was incised easily and there were minimal adhesions to the mesh at the anterior abdominal wall. Once the anterior adhesions from the omentum to the anterior abdominal wall were taken down, we were able to identify the cecum. It appeared to be unremarkable. The terminal ileum was knuckled down into the pelvis and using some blunt dissection, I was able to deliver this up into the wound. Here there was obvious fibrinous exudate and an inflammatory process in the mid and right pelvis, but no evidence of small bowel perforation. The appendix was centered within this inflammation, however, I was able to deliver this up into the wound and it did have some mild edema but no evidence of gangrene or suppurative appendicitis or perforation as would be expected. The mesoappendix was then sequentially divided with the 2-0 Vicryl LigaSure and the base of the appendix was divided with the TA 60 green load stapler and oversewn with the several 3-0 silk sutures. I then carefully evaluated the entire terminal ileum and extended the small bowel as far back up as possible towards the ligament of Treitz. We extended the incision just slightly above the umbilicus into the right, but it ended performing a formal entire exploratory laparotomy. The bowel was run retrograde and other than the last several feet of ileum that had been involved with the inflammatory processes, rest was all unremarkable. There was no evidence of Meckel's diverticulum. The sigmoid colon appeared to be soft and supple. It extended down towards the distal area where it was quite adherent to the anterior abdominal wall apparently from the previous sections. The patient has not had a hysterectomy in the past, but in light of the CT scan findings which showed the sigmoid colon remote from the inflammatory process on the CT scan, I did not attempt to mobilize the distal sigmoid and possible rectum as they were quite adhesed together as well as to the anterior and lateral abdominal wall. Once again at this point, I reevaluated the terminal ileum to make sure that I did not miss a small subtle perforation, but other than what appeared to be fibrinous exudate on the bowel as well as into the mesentry, no perforation or pathology was identified. With this in mind, the right pelvis and right lower quadrant were irrigated thoroughly. Hemostasis was assured. Sponge and needle counts and laparotomy pad counts were reported as correct. A #7 AHSAN drain was placed into the pelvis and brought out through a separate stab wound in the right side of the abdominal wall. The midline fascia was then closed with interrupted #1 Vicryl suture. The skin was approximated loosely with a stapling device and packed with one 0.25 inch Nu Gauze packing. Dry sterile dressings were applied. Drain and sponge were applied. The patient tolerated the procedure well and was taken to the recovery room in stable condition. [id number]/[facility] #: [id number] [facility]
[2018-12-14] MEDS: Heparin VIAL(*) 5000 UNITS/ML VIAL (FIVE THOUSAND) SUBCUT SCH ×3 (05:45→21:34)
[2018-12-14] MEDS: metroNIDAZOLE IV 500 MG/100ML* 500 MG/100 ML BAG IVPB SCH ×3 (05:52→21:16)
[2018-12-14 06:02] LABS: ABS Lymphocytes 0.6 10^3/ul (1.0-4.8); ABS Monocytes 1.2 10^3/ul (0-0.8); ABS Neutrophils 18.5 10^3/ul (1.5-7.7); Hematocrit 38 % (35-47); Hemoglobin 12.6 g/dL (12.0-16.0); Lymphocyte % 2.9 %; Mean Corpuscular HGB Conc 33 g/dL (31-36); Mean Corpuscular Hemoglobin 31 pg (27-31); Mean Corpuscular Volume 93 fL (80-97); Mean Platelet Volume 7.1 fL (7.4-10.4); Nucleated Red Blood Cells % 0.1; Platelet Count 353 10^3/uL (150-450); Red Blood Count 4.09 10^6 /uL (3.70-4.87); Red Cell Distribution Width 17 % (10-15); White Blood Count 20.4 10^3/uL (3.5-10.8)
[2018-12-14 06:23] LABS: BUN/Creatinine Ratio 19.6 (8-20); Calcium 8.8 mg/dL (8.6-10.3); EGFR African American 150.4 (>60); EGFR Non-African American 124.3 (>60); Potassium 3.7 mmol/L (3.5-5.0)
[2018-12-14] MEDS: oxyCODONE/Acetamin 5/325 MG* TAB PO PRN (07:53)
[2018-12-14] MEDS: CMCS: Omeprazole CAP (NF) 20 MG CAP.DR PO SCH (09:26)
[2018-12-14] MEDS: Cefepime 2 GM in Dextrose(*) 2 GM/50 ML BAG IV SCH ×2 (10:14→22:48)
--- NOTE | 2018-12-14 11:07 | PN ---
Subjective Date of Service: 12/14/18 Interval History: Patient tells me her abdominal pain as been well controlled since surgery. She ate clear liquids for breakfast and tolerated well. Denies nausea/vomiting, fever/chills, chest pain, difficulty breathing. Objective Active Medications: Acetaminophen (Tylenol Tab*) 650 mg PO Q4H PRN PRN Reason: MILD PAIN OR TEMP >101 Heparin Sodium (Porcine) (Heparin Vial(*)) 5,000 units SUBCUT Q8HR [facility] Last Admin: 12/14/18 05:45 Dose: 5,000 units Hydrocortisone Sodium Succinate (Solu-Cortef*) 100 mg IV Q8H [facility] Last Admin: 12/14/18 08:47 Dose: 100 mg Hydromorphone HCl (Dilaudid Inj1s*) 0.5 mg IV SLOW PU Q2H PRN PRN Reason: PAIN - SEVERE Lactated Ringer's (Lactated Ringers 1000 Ml Bag*) 1,000 mls @ 100 mls/hr IV PER RATE [facility] Last Admin: 12/14/18 09:21 Dose: 100 mls/hr Cefepime HCl (Maxipime 2 Gm In Dextrose Duplex (*)) 2 gm in 50 mls @ 100 mls/ hr IV 1000,2200 [facility] Last Admin: 12/14/18 10:14 Dose: 100 mls/hr Metronidazole/Sodium Chloride (Flagyl 500 Mg Ivpb*) 500 mg in 100 mls @ 100 mls /hr IVPB 0500,1300,2100 [facility] Last Admin: 12/14/18 05:52 Dose: 100 mls/hr Ketorolac Tromethamine (Toradol Inj*) 30 mg IV PUSH Q6H [facility] Stop: 12/15/18 23:59 Last Admin: 12/14/18 05:45 Dose: 30 mg Metoprolol Tartrate (Lopressor Iv*) 5 mg IV Q6H PRN PRN Reason: tachycardia or hypertension Omeprazole (Prilosec Cap* (Nf)) 40 mg PO DAILY [facility] Last Admin: 12/14/18 09:26 Dose: 40 mg Oxycodone/Acetaminophen (Percocet 5/325 Tab*) 1 tab PO Q4H PRN PRN Reason: PAIN - MODERATE Last Admin: 12/14/18 07:53 Dose: 1 tab Prochlorperazine Edisylate (Compazine Inj*) 5 mg IV Q6H PRN PRN Reason: NAUSEA/VOMITING Vital Signs - 8 hr 12/14/18 12/14/18 12/14/18 04:19 07:26 07:53 Temperature 96.8 F 97.4 F Pulse Rate 82 96 Respiratory 16 17 18 Rate Blood Pressure 120/49 113/68 (mmHg) O2 Sat by Pulse 96 93 Oximetry 12/14/18 12/14/18 08:00 10:19 Temperature Pulse Rate Respiratory 18 18 Rate Blood Pressure (mmHg) O2 Sat by Pulse 93 Oximetry Oxygen Devices in Use Now: Nasal Cannula Appearance: Obese, middle aged white female, laying upright in bed, appearing in NAD Eyes: No Scleral Icterus, PERRLA Ears/Nose/Mouth/Throat: Mucous Membranes Moist Neck: NL Appearance and Movements; NL JVP Respiratory: Symmetrical Chest Expansion and Respiratory Effort, Clear to Auscultation Cardiovascular: NL Sounds; No Murmurs; No JVD, RRR Abdominal: - - dressings to central abdomen and RLQ; no tenderness to palpation in upper quadrants; tenderness in lower quadrants; abdomen is soft and nondistended; AHSAN drain with serosanguinous fluid; normoactive BSxrQ Extremities: No Edema, No Clubbing, Cyanosis Skin: No Rash or Ulcers Neurological: Alert and Oriented x 3, NL Muscle Strength and Tone Result Diagrams: 12/14/18 05:36 12/14/18 05:36 Microbiology and Other Data: Microbiology 12/12/18 01:05 Aerobic Blood Culture - Final Blood Venous Not Reportable Anaerobic Blood Culture - Final Not Reportable Blood Culture - Preliminary No Growth Day 1 12/13/18 00:19 Aerobic Blood Culture - Final Blood Venous Not Reportable Anaerobic Blood Culture - Final Not Reportable Blood Culture - Preliminary No Growth Day 1 12/13/18 15:55 Skin and Soft Tissue MRSA/MSSA (PCR - Final Wound Mrsa Negative S.aureus Negative Gram Stain - Final 12/13/18 00:45 Urine Culture - Final Urine No Growth (<1,000 CFU/mL) Assess/Plan/Problems-Billing Assessment: 58 yo female with PMHx breast CA s/p mastectomy, XRT, and chemo; obesity; RA on chronic prednisone presents from [facility] with imaging concerning for multiple intra-abdominal abscesses. - Patient Problems (1) Sepsis Current Visit: Yes Status: Acute Comment: -secondary to intra-abdominal abscesses -presenting signs: tachycardia and leukocytosis -leukocytosis remains, minimally increased today. Tachycardia resolved, therefore patient no longer meeting sepsis criteria -remains afebrile (2) Intra-abdominal abscess Current Visit: Yes Status: Acute Code(s): K65.1 - PERITONEAL ABSCESS SNOMED Code(s): 28489257 Comment: -CT without contrast performed at [place] demonstrated multiple pelvic abscesses -Dr. Cool performed appendectomy via laparotomy 12/13/18. No evidence of appendicits or perforation. -intra-operative cultures pending, gram stain with gram pos cocci -clear liquid diet per gen surg -continue prn morphine/toradol/tylenol, prn compazine; started bowel regimen -continue cefepime and flagyl -continue PPI per gen surg -pain controlled per patient (3) Rheumatoid arthritis Current Visit: Yes Status: Acute Code(s): M06.9 - RHEUMATOID ARTHRITIS, UNSPECIFIED SNOMED Code(s): 71478378 Comment: -holding home MTX in setting of infection -patient takes chronic prednisone for RA. Will change IV hydrocortisone back to 5mg prednisone po as patient's diet allows per surgery (4) Abnormal urinalysis Current Visit: Yes Status: Acute Code(s): R82.90 - UNSPECIFIED ABNORMAL FINDINGS IN URINE SNOMED Code(s): 428169341 Comment: -UA collected per routine when hsu placed. Results appeared abnormal. -today, urine culture is negative. No intervention needed. (5) DVT prophylaxis Current Visit: Yes Status: Acute Code(s): Z29.9 - ENCOUNTER FOR PROPHYLACTIC MEASURES, UNSPECIFIED SNOMED Code(s): 310346519 Comment: -continue heparin subq TID (6) Full code status Current Visit: Yes Status: Acute Code(s): Z78.9 - OTHER SPECIFIED HEALTH STATUS SNOMED Code(s): 281558352
[2018-12-14] MEDS ORDERED: Senna TAB 8.6 mg* TAB PO PRN (11:13)
[2018-12-14] MEDS ORDERED: Docusate CAP* 100 MG PO PRN (11:13)
--- NOTE | 2018-12-14 11:21 | PN ---
Progress Note - Progress Note Date of Service: 12/14/18 SOAP: Subjective: Fells well today-has been out of bed, tolerating some liquids, no N/V Pain adequately controlled Objective: Temp Pulse Resp BP Pulse Ox 97.6 F 87 17 116/58 95 12/14/18 11:13 12/14/18 11:13 12/14/18 11:13 12/14/18 11:13 12/14/18 11:13 Intake & Output 12/12/18 12/13/18 12/14/18 12/15/18 06:59 06:59 06:59 06:59 Intake Total 4567 3441 1085 Output Total 700 950 10 Balance 3867 2491 1075 Weight 244 lb 11.2 oz Intake: IV Fluids 4397 2461 980 ABX - CEFEPIME 55 ABX - FLAGYL 106 LR 3197 2300 980 IVPB 170 105 ABX - FLAGYL 105 LR 170 Oral 0 980 Output: AHSAN #1 120 10 Urine 700 0 Hsu 730 Estimated Blood Loss 100 PEX: Comfortable Lungs are clear Abd is soft and slightly distended. Bowel sounds are present, hypoactive. Dressing intact. AHSAN with small amount of SG fluid in bulb. Extremities without edema Laboratory Results - last 24 hr 12/14/18 12/14/18 12/14/18 02:30 05:36 05:36 WBC 20.4 H RBC 4.09 Hgb 12.6 Hct 38 MCV 93 MCH 31 MCHC 33 RDW 17 H Plt Count 353 MPV 7.1 L Neut % (Auto) 91.0 Lymph % (Auto) 2.9 [place] % (Auto) 6.0 Eos % (Auto) 0.0 Baso % (Auto) 0.1 Absolute Neuts (auto) 18.5 H Absolute Lymphs (auto) 0.6 L Absolute Monos (auto) 1.2 H Absolute Eos (auto) 0.0 Absolute Basos (auto) 0.0 Absolute Nucleated RBC 0.0 Nucleated RBC % 0.1 Sodium 139 Potassium 3.7 Chloride 109 Carbon Dioxide 25 Anion Gap 5 BUN 10 Creatinine 0.51 Est GFR ( Amer) 150.4 Est GFR (Non-Af Amer) 124.3 BUN/Creatinine Ratio 19.6 Glucose 119 H Calcium 8.8 Urine Color Geno Urine Appearance Clear Urine pH 5.0 Ur Specific [place] 1.031 H Urine Protein 1+(30 mg/dl) A Urine Ketones Trace A Urine Blood 2+ A Urine Nitrate Negative Urine Bilirubin Negative Urine Urobilinogen Negative Ur Leukocyte Esterase Trace A Urine WBC (Auto) 2+(11-20/hpf) A Urine RBC (Auto) 3+(>10/hpf) A Urine Bacteria Absent Urine Glucose Negative Assessment: S/P open appendectomy, abscess drainage Plan: Continue IV abx AHSAN drain D/C hsu Pulmonary toilet. PPI and subq heparin Clear liquids Findings and care discussed with patient and her .
[2018-12-14] MEDS: Pantoprazole IV* 40 MG IV SCH (11:57)
[2018-12-14] MEDS ORDERED: Heparin VIAL(*) 5000 UNITS/ML VIAL (FIVE THOUSAND) SUBCUT SCH (14:00)
[2018-12-14 15:56] LABS: Activated Partial Thrombo Time 29.6 seconds (26.0-38.0); INR 1.37 (0.82-1.09)
[2018-12-15] MEDS: Ketorolac INJ* 30 MG/ML 1 ML VIAL IV PUSH SCH ×4 (00:07→17:58)
[2018-12-15] MEDS: metroNIDAZOLE IV 500 MG/100ML* 500 MG/100 ML BAG IVPB SCH ×3 (04:36→20:50)
[2018-12-15] MEDS: Heparin VIAL(*) 5000 UNITS/ML VIAL (FIVE THOUSAND) SUBCUT SCH ×3 (05:23→21:53)
[2018-12-15] MEDS: CMCS: Omeprazole CAP (NF) 20 MG CAP.DR PO SCH (09:33)
[2018-12-15] MEDS: oxyCODONE/Acetamin 5/325 MG* TAB PO PRN (09:33)
[2018-12-15] MEDS: predniSONE TAB* 5 MG PO SCH (09:33)
[2018-12-15] MEDS: Cefepime 2 GM in Dextrose(*) 2 GM/50 ML BAG IV SCH (09:33)
[2018-12-15] MEDS: Pantoprazole IV* 40 MG IV SCH (12:07)
--- NOTE | 2018-12-15 12:49 | PN ---
Subjective Date of Service: 12/15/18 Interval History: Pt states she is doing well today. She is passing flatus. Last BM was today. She reports increased appetite and is tolerating PO well. She does note that the abdomen is sore. Hsu was recently removed, and patient is urinating well. She has no other complaints today. Objective Active Medications: Acetaminophen (Tylenol Tab*) 650 mg PO Q4H PRN Docusate Sodium (Colace Cap*) 100 mg PO DAILY PRN Furosemide (Lasix Tab*) 20 mg PO DAILY DENIS Heparin Sodium (Porcine) (Heparin Vial(*)) 5,000 units SUBCUT Q8HR DENIS Cefepime HCl (Maxipime 2 Gm In Dextrose Duplex (*)) 2 gm in 50 mls @ 100 mls/ hr IV 1000,2200 DENIS Metronidazole/Sodium Chloride (Flagyl 500 Mg Ivpb*) 500 mg in 100 mls @ 100 mls /hr IVPB 0500,1300,2100 DENIS Ketorolac Tromethamine (Toradol Inj*) 30 mg IV PUSH Q6H DENIS Metoprolol Tartrate (Lopressor Iv*) 5 mg IV Q6H PRN Metoprolol Tartrate (Lopressor Tab*) 25 mg PO BID DENIS Omeprazole (Prilosec Cap* (Nf)) 40 mg PO DAILY DENIS Oxycodone/Acetaminophen (Percocet 5/325 Tab*) 1 tab PO Q4H PRN Pantoprazole Sodium (Protonix Iv*) 40 mg IV Q24H DENIS Prednisone (Deltasone Tab*) 5 mg PO DAILY DENIS Prochlorperazine Edisylate (Compazine Inj*) 5 mg IV Q6H PRN Senna (Senokot 8.6 Mg Tab*) 1 tab PO DAILY PRN Vital Signs: Temp Pulse Resp BP Pulse Ox 97.6 F 110 18 119/67 94 12/15/18 11:26 12/15/18 11:26 12/15/18 12:13 12/15/18 11:26 12/15/18 11:26 Oxygen Devices in Use Now: None Appearance: Pt is sitting in chair with LE at ground. She appears well, in no acute distress. Pleasant, cooperative. Eyes: No Scleral Icterus, PERRLA Ears/Nose/Mouth/Throat: NL Teeth, Lips, Gums, Clear Oropharnyx, Mucous Membranes Moist Neck: NL Appearance and Movements; NL JVP, Trachea Midline Respiratory: Symmetrical Chest Expansion and Respiratory Effort, Clear to Auscultation Cardiovascular: NL Sounds; No Murmurs; No JVD, RRR Abdominal: - - Slight distention. Hypoactive BS. Midline incision without dehiscence, with packing in place. AHSAN drain in place at R. Dressing CDI. TTP at LLQ, RLQ. Extremities: No Clubbing, Cyanosis, - - 1+ pedal edema b/l Neurological: Alert and Oriented x 3 Result Diagrams: 12/14/18 05:36 12/14/18 05:36 Microbiology and Other Data: Microbiology 12/12/18 01:05 Aerobic Blood Culture - Final Blood Venous Not Reportable Anaerobic Blood Culture - Final Not Reportable Blood Culture - Preliminary No Growth Day 1 12/13/18 00:19 Aerobic Blood Culture - Final Blood Venous Not Reportable Anaerobic Blood Culture - Final Not Reportable Blood Culture - Preliminary No Growth Day 1 12/13/18 15:55 Skin and Soft Tissue MRSA/MSSA (PCR - Final Wound Mrsa Negative S.aureus Negative Gram Stain - Final 12/13/18 00:45 Urine Culture - Final Urine No Growth (<1,000 CFU/mL) Assess/Plan/Problems-Billing Assessment: 58 yo female with PMHx breast CA s/p mastectomy, XRT, and chemo; obesity; RA on chronic prednisone presents from [facility] with imaging concerning for multiple intra-abdominal abscesses. - Patient Problems (1) Intra-abdominal abscess Comment: -Pt with increased appetite, tolerating CL PO, abd pain controlled; had BM today -CT without contrast performed at [place] demonstrated multiple pelvic abscesses -Dr. Cool performed appendectomy and pelvic abscess draiainge 12/13/18; no evidence of appendicits or perforation. -Intra-operative cultures pending, gram stain with gram pos cocci -Advance diet as tolerated -Continue prn morphine/toradol/tylenol, prn compazine; started bowel regimen -Continue cefepime and flagyl -Continue PPI per gen surg -Add on CRP and trend (2) Sepsis Comment: -Sepsis secondary to intra-abdominal abscesses -Presenting signs: tachycardia and leukocytosis -Intermittent tachycardia; pt takes metoprolol at home, which she states is for heart rate control; she has had none since admission, due to NPO status; will restart metoprolol and continue to monitor, but I suspect that this is related more to d/c of BB than sepsis -Continued leukocytosis, but overall trending down; afebrile - NGTD (3) Rheumatoid arthritis Comment: -Holding home MTX in setting of infection -Patient takes chronic prednisone for RA -Continue PO prednisone 5mg, as at home (4) Hypertension Comment: -Restart furosemide, metoprolol (5) Abnormal urinalysis Comment: -Resolved -UA collected per routine when hsu placed and results appeared abnormal -Urine culture is negative -No intervention needed (6) DVT prophylaxis Comment: -continue heparin subq TID (7) Full code status Status and Disposition: Inpatient. Discharge when stable.
[2018-12-15] MEDS ORDERED: Metoprolol Tartrate IV* 1 MG/ML 5 ML VIAL IV ONE (12:58)
--- NOTE | 2018-12-15 13:22 | PN ---
Progress Note - Progress Note Date of Service: 12/15/18 Note: Surgery Progress: S: POD #2. On Cefipime and Flagyl. Andres clears well. Would like to eat. Passing flatus and had BM this a.m.. Pain well controlled. Ambulating. O: Vital Signs - 8 hr 12/15/18 12/15/18 12/15/18 04:46 05:55 07:24 Temperature 98 F 97.7 F Pulse Rate 92 98 Respiratory 19 16 Rate Blood Pressure 125/76 119/58 (mmHg) O2 Sat by Pulse 95 95 95 Oximetry 12/15/18 12/15/18 12/15/18 08:00 09:33 11:26 Temperature 97.6 F Pulse Rate 110 Respiratory 16 18 16 Rate Blood Pressure 119/67 (mmHg) O2 Sat by Pulse 95 94 Oximetry 12/15/18 12:13 Temperature Pulse Rate Respiratory 18 Rate Blood Pressure (mmHg) O2 Sat by Pulse Oximetry Intake and Output Last 24 Hours 12/13/18 12/14/18 12/15/18 12/16/18 06:59 06:59 06:59 06:59 Intake Total 4567 3441 2953.5 Output Total 658 376 7189 240 Balance 3867 2491 1392.5 -240 Weight 244 lb 11.2 oz Intake: IV Fluids 4397 2461 1178.5 ABX - CEFEPIME 55 ABX - FLAGYL 106 100 LR 3197 2300 1078.5 IVPB 170 325 ABX - FLAGYL 325 LR 170 Oral 0 980 1450 Output: AHSAN #1 120 81 40 Urine 700 0 1480 100 Christie 730 Liquid Stool 100 Estimated Blood Loss 100 Other: Date of Last Bowel 12/15/18 Movement # Bowel Movements 1 Estimated Stool Amount Small C&S: SOURCE: WOUND SPDESC: ORDERED: Anaerobic Cult, MRSA/SA SSTI, Culture & Stain COMMENTS: PERITONEAL FLUID RECEIVED ON RED SWAB Procedure Result Reported Site Anaerobic Culture Preliminary 12/14/18- 161 ML Anaerobe Culture No Anaerobes Day 1 MRSA/S. aureus SSTI PCR Final 12/13/18- 2252 ML Organism 1 MRSA NEGATIVE Organism 2 S.AUREUS NEGATIVE Wound/Misc Gram Stain Final 12/14/18- 0814 ML 4+ Neutrophils 4+ Gram Positive Cocci Wound/Misc Culture Preliminary 12/14/18- 1619 ML Organism 1 ESCHERICHIA COLI Quantity 1+ Path: pend Labs: none today A: s/p exp lap; drainage abscesses; appendectomy; doing well P: will advance diet; cont IV abx pend C&S sens; to resume po meds (per hospitalist)
[2018-12-15] MEDS: Acetaminophen TAB* 325 MG PO PRN (19:43)
[2018-12-15 20:29] LABS: Hematocrit 35 % (35-47); Hemoglobin 11.6 g/dL (12.0-16.0); Mean Corpuscular HGB Conc 34 g/dL (31-36); Mean Corpuscular Hemoglobin 31 pg (27-31); Mean Corpuscular Volume 92 fL (80-97); Mean Platelet Volume 6.7 fL (7.4-10.4); Platelet Count 435 10^3/uL (150-450); Red Blood Count 3.75 10^6 /uL (3.70-4.87); Red Cell Distribution Width 17 % (10-15); White Blood Count 17.5 10^3/uL (3.5-10.8)
[2018-12-15] MEDS: Metoprolol Tartrate TAB* 25 MG PO SCH (20:49)
[2018-12-15 21:04] LABS: Albumin 2.6 g/dL (3.2-5.2); Calcium 8.9 mg/dL (8.6-10.3); EGFR African American 104.4 (>60); EGFR Non-African American 86.2 (>60); Globulin 2.7 g/dL (2-4); Magnesium 1.8 mg/dL (1.9-2.7); Potassium 3.3 mmol/L (3.5-5.0); Total Bilirubin 0.4 mg/dL (0.2-1.0); Total Protein 5.3 g/dL (6.4-8.9)
[2018-12-15] MEDS ORDERED: Magnesium Sulfate 2 GM IV* 2 GM/50 ML BAG IVPB ONE (21:07)
[2018-12-15] MEDS ORDERED: Potassium Chlor TAB* 20 MEQ TAB.ER PO ONE (21:07)
[2018-12-15 21:10] LABS: ABS Basophils 0.1 10^3/ul (0-0.2); ABS Eosinophils 0.3 10^3/ul (0-0.6); ABS Lymphocytes 0.9 10^3/ul (1.0-4.8); ABS Neutrophils 15.2 10^3/ul (1.5-7.7); Eosinophil % 1.6 %; Lymphocyte % 5.3 %
--- NOTE | 2018-12-15 21:19 | PN ---
Hospitalist Progress Note Date of Service: 12/15/18 Cross coverage note: Called to assess patient after experiencing chills, tachycardia, and slight decrease in BP. Eval at bedside. Pt reports symptoms resolved without intervention. well appearing, nad rrr no mgr crackles in lungs improved after numerous deep breaths mild abd tenderness near incision site - c/d/i, AHSAN drain just emptied, no guarding/rebound LE with 1+ edema over ankles A/P Possible that she had transient bacteremia from known abdominal source. Noted recent high WBC and CRP. Already on broad spectrum antibiotics, which are certainly covering the bacteria seen in wound culture from OR. Likely low benefit from adding vanc or double gram-neg coverage. Holding off on IVF given slightly volume overloaded. - cont to monitor vitals closely - STAT BCx, labs, lactate ordered - Surgery aware - to restart home metoprolol tonight
--- NOTE | 2018-12-15 23:16 | PN ---
Progress Note - Progress Note Date of Service: 12/15/18 Note: Patient seen at 8:30PM tonight She had episode of chills and shakes earlier in the evening without fever or diaphoresis. She has no increase in abdominal pain She now feels better She tolerated food today and has had several loose BM's today and is passing flatus Afebrile HR 110 SBP 112 O2 sats 98% She is comfortable Abd is soft and non-distended. Appropriate incisional pain. Incision is intact. AHSAN in place with small amount of brown thin fluid in bulb (about 30cc total over course of afternoon). Labs noted Will follow for now-WBC coming down and on IV abx, Lactate normal Follow AHSAN output color and amount Continue IV abx If worsens, becomes overtly septic, will most likely require return to OR Discussed with patient and Discussed with Karlee Bauer, Hospitalist, who also saw patient.
[2018-12-16] MEDS: Cefepime 2 GM in Dextrose(*) 2 GM/50 ML BAG IV SCH ×3 (00:04→22:05)
[2018-12-16] MEDS: metroNIDAZOLE IV 500 MG/100ML* 500 MG/100 ML BAG IVPB SCH ×3 (04:51→20:15)
[2018-12-16 05:55] LABS: Hematocrit 38 % (35-47); Hemoglobin 12.5 g/dL (12.0-16.0); Mean Corpuscular HGB Conc 33 g/dL (31-36); Mean Corpuscular Hemoglobin 31 pg (27-31); Mean Corpuscular Volume 94 fL (80-97); Red Blood Count 4.01 10^6 /uL (3.70-4.87); Red Cell Distribution Width 18 % (10-15); White Blood Count 13.2 10^3/uL (3.5-10.8)
[2018-12-16] MEDS: Heparin VIAL(*) 5000 UNITS/ML VIAL (FIVE THOUSAND) SUBCUT SCH ×3 (05:55→22:03)
[2018-12-16 05:58] LABS: CO2 Carbon Dioxide 23 mmol/L (22-32); Calcium 8.3 mg/dL (8.6-10.3); Magnesium 2.3 mg/dL (1.9-2.7); Sodium 139 mmol/L (135-145)
[2018-12-16 06:04] LABS: BUN/Creatinine Ratio 19.4 (8-20); Blood Urea Nitrogen 12 mg/dL (6-24); C Reactive Protein 88.85 mg/L (<8.01); EGFR African American 120.1 (>60); EGFR Non-African American 99.2 (>60); Glucose 94 mg/dL (70-100)
[2018-12-16 07:03] LABS: Anion Gap 4 mmol/L (2-11); Chloride 112 mmol/L (101-111)
[2018-12-16 07:23] LABS: ABS Basophils 0.1 10^3/ul (0-0.2); ABS Eosinophils 0.5 10^3/ul (0-0.6); ABS Lymphocytes 1.6 10^3/ul (1.0-4.8); ABS Neutrophils 10.1 10^3/ul (1.5-7.7); Eosinophil % 3.5 %; Lymphocyte % 11.7 %; Mean Platelet Volume 7.3 fL (7.4-10.4); Nucleated Red Blood Cells % 0.1; Platelet Count 349 10^3/uL (150-450)
[2018-12-16] MEDS: Metoprolol Tartrate TAB* 25 MG PO SCH ×2 (08:36→20:14)
[2018-12-16] MEDS: Furosemide TAB* 20 MG PO SCH (08:37)
[2018-12-16] MEDS: CMCS: Omeprazole CAP (NF) 20 MG CAP.DR PO SCH (08:37)
[2018-12-16] MEDS: predniSONE TAB* 5 MG PO SCH (08:37)
[2018-12-16] MEDS: oxyCODONE/Acetamin 5/325 MG* TAB PO PRN (08:44)
--- NOTE | 2018-12-16 10:07 | PN ---
Progress Note - Progress Note Date of Service: 12/16/18 SOAP: Subjective: She feels much better this morning Passing some flatus, minimal incisional tenderness Tolerated some liquids for breakfast, no N/V Objective: Temp Pulse Resp BP Pulse Ox 97.8 F 100 16 120/69 97 12/16/18 07:31 12/16/18 08:42 12/16/18 09:30 12/16/18 07:31 12/16/18 08:42 Intake & Output 12/14/18 12/15/18 12/16/18 12/17/18 06:59 06:59 06:59 06:59 Intake Total 3441 2953.5 1378 210 Output Total 950 1561 810 Balance 2491 1392.5 568 210 Intake: IV Fluids 2461 1178.5 100 ABX - CEFEPIME 55 ABX - FLAGYL 106 100 LR 2300 1078.5 NS 100 IVPB 325 438 ABX - CEFEPIME 55 ABX - FLAGYL 325 328 Mag Sulfate 55 Oral 980 1450 840 210 Output: AHSAN #1 120 81 110 Urine 0 1480 600 Christie 730 Liquid Stool 100 Estimated Blood Loss 100 Other: Estimated Void Large Medium Date of Last Bowel 12/15/18 Movement # Bowel Movements 1 1 Estimated Stool Amount Small Medium # Voids 2 3 AHSAN with small amount of thin serosanguinous fluid in bulb, non-bilious. PEX: Comfortable-sitting up in chair Lungs are clear Abd is soft and slightly distended. Wound is clean and packing was changed, serosanguinous drainage, fascia intact on digital palpation. No redness. Bowel sounds are present, hypoactive. Ext mild lower extremity edema Laboratory Results - last 24 hr 12/15/18 12/15/18 12/15/18 15:35 20:21 20:21 WBC 17.5 H RBC 3.75 Hgb 11.6 L Hct 35 MCV 92 MCH 31 MCHC 34 RDW 17 H Plt Count 435 MPV 6.7 L Neut % (Auto) 86.8 Lymph % (Auto) 5.3 [place] % (Auto) 5.6 Eos % (Auto) 1.6 Baso % (Auto) 0.7 Absolute Neuts (auto) 15.2 H Absolute Lymphs (auto) 0.9 L Absolute Monos (auto) 1.0 H Absolute Eos (auto) 0.3 Absolute Basos (auto) 0.1 Absolute Nucleated RBC 0.0 Nucleated RBC % 0.0 Sodium 138 Potassium 3.3 L Chloride 108 Carbon Dioxide 26 Anion Gap 4 BUN 14 Creatinine 0.70 Est GFR ( Amer) 104.4 Est GFR (Non-Af Amer) 86.2 BUN/Creatinine Ratio 20.0 Glucose 101 H Lactic Acid Calcium 8.9 Magnesium 1.8 L Total Bilirubin 0.40 AST 20 ALT 7 Alkaline Phosphatase 87 C-Reactive Protein 98.53 H Total Protein 5.3 L Albumin 2.6 L Globulin 2.7 Albumin/Globulin Ratio 1.0 12/15/18 12/16/18 12/16/18 20:21 05:15 05:15 WBC 13.2 H RBC 4.01 Hgb 12.5 Hct 38 MCV 94 MCH 31 MCHC 33 RDW 18 H Plt Count 349 MPV 7.3 L Neut % (Auto) 76.5 Lymph % (Auto) 11.7 [place] % (Auto) 7.9 Eos % (Auto) 3.5 Baso % (Auto) 0.4 Absolute Neuts (auto) 10.1 H Absolute Lymphs (auto) 1.6 Absolute Monos (auto) 1.0 H Absolute Eos (auto) 0.5 Absolute Basos (auto) 0.1 Absolute Nucleated RBC 0.0 Nucleated RBC % 0.1 Sodium 139 Potassium TNP Chloride 112 H Carbon Dioxide 23 Anion Gap 4 BUN 12 Creatinine 0.62 Est GFR ( Amer) 120.1 Est GFR (Non-Af Amer) 99.2 BUN/Creatinine Ratio 19.4 Glucose 94 Lactic Acid 1.1 Calcium 8.3 L Magnesium 2.3 Total Bilirubin AST ALT Alkaline Phosphatase C-Reactive Protein 88.85 H Total Protein Albumin Globulin Albumin/Globulin Ratio 12/16/18 09:08 WBC RBC Hgb Hct MCV MCH MCHC RDW Plt Count MPV Neut % (Auto) Lymph % (Auto) [place] % (Auto) Eos % (Auto) Baso % (Auto) Absolute Neuts (auto) Absolute Lymphs (auto) Absolute Monos (auto) Absolute Eos (auto) Absolute Basos (auto) Absolute Nucleated RBC Nucleated RBC % Sodium Potassium 3.7 Chloride Carbon Dioxide Anion Gap BUN Creatinine Est GFR ( Amer) Est GFR (Non-Af Amer) BUN/Creatinine Ratio Glucose Lactic Acid Calcium Magnesium Total Bilirubin AST ALT Alkaline Phosphatase C-Reactive Protein Total Protein Albumin Globulin Albumin/Globulin Ratio PATH: Acute appendicitis Cultures noted Assessment: POD# 3 s/p open appendectomy-- Episode of rigors last night, no fever--? etiology, blood cultures taken, she feels much better--WBC down, labs OK, no fever,no sign of peritonitis, AHSAN drainage is now serosanguinous. Plan: IV abx Diet as tolerated Increase activity Observe for now Care discussed with patient.
--- NOTE | 2018-12-16 11:32 | PN ---
Subjective Date of Service: 12/16/18 Interval History: Overnight, patient had chills, tachycardia. She states that she started to feel cold appx 1500, at dinner at 1700 and had decreased appetite. She went to bed shortly after and developed shaking chills, tachycardia. Denied sweats, fever during that time. Denies cough, increased abd pain. Pt has loose stools with almost every toileting, but reports that it is very minimal amount. Today, pt states she is feeling well. Her appetite is good. She continues to have pedal edema, but denies pain in the feet, calves, legs, and denies difficulty with ambulation due to edema. She continues to have BM, loose stool. She has had no flatus today. Objective Active Medications: Acetaminophen (Tylenol Tab*) 650 mg PO Q4H PRN Docusate Sodium (Colace Cap*) 100 mg PO DAILY PRN Furosemide (Lasix Tab*) 20 mg PO DAILY DENIS Heparin Sodium (Porcine) (Heparin Vial(*)) 5,000 units SUBCUT Q8HR DENIS Cefepime HCl (Maxipime 2 Gm In Dextrose Duplex (*)) 2 gm in 50 mls @ 100 mls/ hr IV 1000,2200 DENIS Metronidazole/Sodium Chloride (Flagyl 500 Mg Ivpb*) 500 mg in 100 mls @ 100 mls /hr IVPB 0500,1300,2100 DENIS Metoprolol Tartrate (Lopressor Tab*) 25 mg PO BID DENIS Omeprazole (Prilosec Cap* (Nf)) 40 mg PO DAILY DENIS Oxycodone/Acetaminophen (Percocet 5/325 Tab*) 1 tab PO Q4H PRN Pantoprazole Sodium (Protonix Iv*) 40 mg IV Q24H DENIS Prednisone (Deltasone Tab*) 5 mg PO DAILY DENIS Prochlorperazine Edisylate (Compazine Inj*) 5 mg IV Q6H PRN Senna (Senokot 8.6 Mg Tab*) 1 tab PO DAILY PRN Vital Signs: Temp Pulse Resp BP Pulse Ox 97.9 F 85 16 101/59 94 12/16/18 11:14 12/16/18 11:14 12/16/18 11:14 12/16/18 11:14 12/16/18 11:14 Oxygen Devices in Use Now: None Appearance: Pt is sitting up in chair with LE at ground. She appears comfortable, breathing normally, in no acute distress. She is cooperative, appropriate. Eyes: No Scleral Icterus, PERRLA Ears/Nose/Mouth/Throat: Clear Oropharnyx, Mucous Membranes Moist Neck: NL Appearance and Movements; NL JVP, Trachea Midline Respiratory: Symmetrical Chest Expansion and Respiratory Effort, Clear to Auscultation Cardiovascular: NL Sounds; No Murmurs; No JVD, RRR Abdominal: - - Abd with CDI dressing over surgical incision site. AHSAN drain in place with small amount of serosang fluid in drain. Abd with slight distention. BS hypoactive throughout. Nontender to palpation. Extremities: No Clubbing, Cyanosis, - - B/l 1+ pedal edema; trace pretibial edema. Neurological: Alert and Oriented x 3 Result Diagrams: 12/16/18 05:15 12/16/18 09:08 Microbiology and Other Data: Microbiology 12/12/18 01:05 Aerobic Blood Culture - Final Blood Venous Not Reportable Anaerobic Blood Culture - Final Not Reportable Blood Culture - Preliminary No Growth Day 1 12/13/18 00:19 Aerobic Blood Culture - Final Blood Venous Not Reportable Anaerobic Blood Culture - Final Not Reportable Blood Culture - Preliminary No Growth Day 1 12/13/18 15:55 Skin and Soft Tissue MRSA/MSSA (PCR - Final Wound Mrsa Negative S.aureus Negative Gram Stain - Final 12/13/18 00:45 Urine Culture - Final Urine No Growth (<1,000 CFU/mL) Assess/Plan/Problems-Billing Assessment: 58 yo female with PMHx breast CA s/p mastectomy, XRT, and chemo; obesity; RA on chronic prednisone presents from [facility] with imaging concerning for multiple intra-abdominal abscesses. - Patient Problems (1) Intra-abdominal abscess Comment: -POD3 open appendectomy -Pt with increased appetite, tolerating advancing diet, abd pain controlled; continues to have daily BM -CT without contrast performed at [place] demonstrated multiple pelvic abscesses -Dr. Cool performed appendectomy and pelvic abscess drainge 12/13/18; no evidence of appendicits or perforation -Intra-operative cultures show Bacteroides ovatus, E. coli; appears to be on appropriate antibiotics -Continue to advance diet as tolerated -Continue prn morphine/toradol/tylenol, prn compazine, bowel regimen -Continue cefepime and flagyl -Continue PPI per gen surg -CRP trending down; continue to monitor (2) Sepsis Comment: -Sepsis secondary to intra-abdominal abscesses -Presenting signs: tachycardia and leukocytosis -Intermittent tachycardia; pt takes metoprolol at home, which she states is for heart rate control; she has had none since admission due to NPO status; tachycardia improved with restart of metoprolol -Continued leukocytosis, but overall trending down; afebrile - NGTD (3) Rheumatoid arthritis Comment: -Holding home MTX in setting of infection -Patient takes chronic prednisone for RA -Continue PO prednisone 5mg, as at home (4) Hypertension Comment: -Restart furosemide, metoprolol (5) DVT prophylaxis Comment: -continue heparin subq TID (6) Full code status Status and Disposition: Inpatient. Discharge when stable.
[2018-12-16] MEDS: Pantoprazole IV* 40 MG IV SCH (13:56)
[2018-12-16] MEDS ORDERED: Furosemide IV* 10 MG/ML 2 ML VIAL (20 MG) IV ONE (15:30)
[2018-12-17] MEDS: metroNIDAZOLE IV 500 MG/100ML* 500 MG/100 ML BAG IVPB SCH ×3 (05:25→21:37)
[2018-12-17] MEDS: Heparin VIAL(*) 5000 UNITS/ML VIAL (FIVE THOUSAND) SUBCUT SCH ×3 (05:25→21:35)
[2018-12-17 06:39] LABS: Hematocrit 37 % (35-47); Hemoglobin 12.2 g/dL (12.0-16.0); Mean Corpuscular HGB Conc 33 g/dL (31-36); Mean Corpuscular Hemoglobin 31 pg (27-31); Mean Corpuscular Volume 93 fL (80-97); Mean Platelet Volume 7.3 fL (7.4-10.4); Platelet Count 377 10^3/uL (150-450); Red Blood Count 3.91 10^6 /uL (3.70-4.87); Red Cell Distribution Width 18 % (10-15); White Blood Count 9.9 10^3/uL (3.5-10.8)
[2018-12-17 07:19] LABS: ABS Basophils 0.1 10^3/ul (0-0.2); ABS Eosinophils 0.5 10^3/ul (0-0.6); ABS Lymphocytes 1.4 10^3/ul (1.0-4.8); ABS Monocytes 0.8 10^3/ul (0-0.8); ABS Neutrophils 7.2 10^3/ul (1.5-7.7); Eosinophil % 4.7 %
[2018-12-17] MEDS: predniSONE TAB* 5 MG PO SCH (09:46)
[2018-12-17] MEDS: Furosemide TAB* 20 MG PO SCH (09:46)
[2018-12-17] MEDS: Metoprolol Tartrate TAB* 25 MG PO SCH ×2 (09:46→21:35)
[2018-12-17] MEDS: Cefepime 2 GM in Dextrose(*) 2 GM/50 ML BAG IV SCH ×2 (09:46→22:55)
[2018-12-17] MEDS: oxyCODONE/Acetamin 5/325 MG* TAB PO PRN ×2 (11:03→19:00)
[2018-12-17] MEDS: Pantoprazole IV* 40 MG IV SCH (11:04)
--- NOTE | 2018-12-17 16:12 | PN ---
Progress Note - Progress Note Date of Service: 12/17/18 SOAP: Subjective: Feels stronger today Tolerating regular diet and had 3 soft BM's today Ambulating in halls Objective: Temp Pulse Resp BP Pulse Ox 98.5 F 100 16 114/67 100 12/17/18 15:14 12/17/18 15:14 12/17/18 15:14 12/17/18 15:14 12/17/18 15:14 Intake & Output 12/15/18 12/16/18 12/17/18 12/18/18 06:59 06:59 06:59 06:59 Intake Total 2953.5 1378 2525 1175 Output Total 6970 478 0974 1355 Balance 1392.5 568 -1753 -180 Intake: IV Fluids 1178.5 100 52 ABX - FLAGYL 100 LR 1078.5 NS 100 52 IVPB 325 438 433 ABX - CEFEPIME 55 123 ABX - FLAGYL 325 328 310 Mag Sulfate 55 Oral 4560 871 9277 1175 Output: AHSAN #1 81 110 78 30 Urine 1505 081 0730 1325 Liquid Stool 100 Other: Estimated Void Large Medium Date of Last Bowel 12/15/18 12/17/18 Movement # Bowel Movements 1 1 0 Estimated Stool Amount Small Medium Medium # Voids 2 3 PEX: Comfortable Lungs are clear Abd is soft and slightly distended. Few scattered bowel sounds are present. Minimal incisional discomfort. Incision is clean and without erythema-packing changed-this serous fluid on packing AHSAN in place-not significant amount of drainage, but now fluid is turbid and brown in color. Does not appear to be bilious or purulent. Ext 1+ edema Laboratory Results - last 24 hr 12/17/18 05:54 WBC 9.9 RBC 3.91 Hgb 12.2 Hct 37 MCV 93 MCH 31 MCHC 33 RDW 18 H Plt Count 377 MPV 7.3 L Neut % (Auto) 72.8 Lymph % (Auto) 14.0 [place] % (Auto) 7.6 Eos % (Auto) 4.7 Baso % (Auto) 0.9 Absolute Neuts (auto) 7.2 Absolute Lymphs (auto) 1.4 Absolute Monos (auto) 0.8 Absolute Eos (auto) 0.5 Absolute Basos (auto) 0.1 Absolute Nucleated RBC 0.0 Nucleated RBC % 0.0 Operative cultures reviewed Recent blood cultures negative Assessment: POD # 4 s/p open appendectomy Persistent AHSAN drainage Plan: IV abx Regular diet AHSAN drain, wound care-- D/C next 24-48 hours on oral antibiotics- Care discussed with patient and her .
--- NOTE | 2018-12-17 17:05 | PN ---
Subjective Date of Service: 12/17/18 Interval History: Ms. Richardson reports that she is feeling quite well today. She denies abdominal pain. She is tolerating oral intake and having bowel movements. Objective Active Medications: Acetaminophen (Tylenol Tab*) 650 mg PO Q4H PRN Docusate Sodium (Colace Cap*) 100 mg PO DAILY PRN Furosemide (Lasix Tab*) 20 mg PO DAILY DENIS Heparin Sodium (Porcine) (Heparin Vial(*)) 5,000 units SUBCUT Q8HR DENIS Cefepime HCl (Maxipime 2 Gm In Dextrose Duplex (*)) 2 gm in 50 mls @ 100 mls/ hr IV 1000,2200 DENIS Metronidazole/Sodium Chloride (Flagyl 500 Mg Ivpb*) 500 mg in 100 mls @ 100 mls /hr IVPB 0500,1300,2100 DENIS Metoprolol Tartrate (Lopressor Tab*) 25 mg PO BID DENIS Oxycodone/Acetaminophen (Percocet 5/325 Tab*) 1 tab PO Q4H PRN Pantoprazole Sodium (Protonix Iv*) 40 mg IV Q24H DENIS Prednisone (Deltasone Tab*) 5 mg PO DAILY DENIS Prochlorperazine Edisylate (Compazine Inj*) 5 mg IV Q6H PRN Senna (Senokot 8.6 Mg Tab*) 1 tab PO DAILY PRN Vital Signs: Temp Pulse Resp BP Pulse Ox 98.5 F 100 16 114/67 100 12/17/18 15:14 12/17/18 15:14 12/17/18 15:14 12/17/18 15:14 12/17/18 15:14 Oxygen Devices in Use Now: None Appearance: Female sitting up in chair in NAD Eyes: No Scleral Icterus Ears/Nose/Mouth/Throat: Mucous Membranes Moist Respiratory: Symmetrical Chest Expansion and Respiratory Effort, Clear to Auscultation Cardiovascular: NL Sounds; No Murmurs; No JVD, - - +2 LE edema Abdominal: NL Sounds; No Tenderness; No Distention Extremities: - - +2 LE edema Skin: - - Midline abdominal dressing CDI, AHSAN tube in situ with yellow drainage Neurological: Alert and Oriented x 3, NL Muscle Strength and Tone Nutrition: Taking PO's Result Diagrams: 12/17/18 05:54 12/16/18 09:08 Microbiology and Other Data: . Assess/Plan/Problems-Billing Assessment: 58 yo female with PMHx breast CA s/p mastectomy, XRT, and chemo; obesity; RA on chronic prednisone presents from [facility] with imaging concerning for multiple intra-abdominal abscesses. - Patient Problems (1) Sepsis Comment: - Resolved - Sepsis secondary to intra-abdominal abscesses - Presenting signs: tachycardia and leukocytosis -Intermittent tachycardia resolved; pt takes metoprolol at home, which she states is for heart rate control (2) Intra-abdominal abscess Comment: -POD4 open appendectomy -Pt with increased appetite, tolerating advancing diet, abd pain controlled; continues to have daily BM -CT without contrast performed at [place] demonstrated multiple pelvic abscesses -Dr. Cool performed appendectomy and pelvic abscess drainge 12/13/18; no evidence of appendicits or perforation -Intra-operative cultures show Bacteroides ovatus, E. coli; continue cefepime and flagyl -Continue prn morphine/toradol/tylenol, prn compazine, bowel regimen -Continue PPI per gen surg (3) Abnormal urinalysis Comment: - Asymptomatic. Urine culture is negative (4) Hypertension Comment: - SBP 110s - Continue furosemide, metoprolol (5) Rheumatoid arthritis Comment: -Holding home MTX in setting of infection -Patient takes chronic prednisone for RA -Continue PO prednisone 5mg, as at home (6) DVT prophylaxis Comment: -continue heparin subq TID (7) Full code status Comment: Status and Disposition: Inpatient. Anticipate discharge to home when medically stable.
[2018-12-18] MEDS: Heparin VIAL(*) 5000 UNITS/ML VIAL (FIVE THOUSAND) SUBCUT SCH ×3 (05:44→21:33)
[2018-12-18] MEDS: metroNIDAZOLE IV 500 MG/100ML* 500 MG/100 ML BAG IVPB SCH ×3 (05:44→21:33)
[2018-12-18] MEDS: oxyCODONE/Acetamin 5/325 MG* TAB PO PRN ×2 (05:50→18:49)
--- NOTE | 2018-12-18 07:41 | PN ---
Subjective Date of Service: 12/18/18 Interval History: HD 7 on 12/18 58 F PMHx HTN, breast CA s/p mastectomy, XRT, and chemo; obesity; RA on chronic prednisone presents from [facility] with sepsis 2/2 to intra-abdominal abscesses thought to be a complication from appendicitis. She is s/p washout and drainage 12/13 and still has AHSAN drain in place Overnight no acute events, VSS Labs not done today, leukocytosis resolved 12/17 This morning, pt feeling well, pain dimished, tolerting diet, making BM and flatus. No fevers no other concerns Objective Active Medications: Acetaminophen (Tylenol Tab*) 650 mg PO Q4H PRN PRN Reason: MILD PAIN OR TEMP >101 Last Admin: 12/15/18 19:43 Dose: 650 mg Docusate Sodium (Colace Cap*) 100 mg PO DAILY PRN PRN Reason: CONSTIPATION Furosemide (Lasix Tab*) 20 mg PO DAILY [facility] Last Admin: 12/17/18 09:46 Dose: 20 mg Heparin Sodium (Porcine) (Heparin Vial(*)) 5,000 units SUBCUT Q8HR [facility] Last Admin: 12/18/18 05:44 Dose: 5,000 units Cefepime HCl (Maxipime 2 Gm In Dextrose Duplex (*)) 2 gm in 50 mls @ 100 mls/ hr IV 1000,2200 [facility] Last Admin: 12/17/18 22:55 Dose: 100 mls/hr Metronidazole/Sodium Chloride (Flagyl 500 Mg Ivpb*) 500 mg in 100 mls @ 100 mls /hr IVPB 0500,1300,2100 [facility] Last Admin: 12/18/18 05:44 Dose: 100 mls/hr Metoprolol Tartrate (Lopressor Tab*) 25 mg PO BID [facility] Last Admin: 12/17/18 21:35 Dose: 25 mg Oxycodone/Acetaminophen (Percocet 5/325 Tab*) 1 tab PO Q4H PRN PRN Reason: PAIN - MODERATE Last Admin: 12/18/18 05:50 Dose: 1 tab Pantoprazole Sodium (Protonix Iv*) 40 mg IV Q24H [facility] Last Admin: 12/17/18 11:04 Dose: 40 mg Prednisone (Deltasone Tab*) 5 mg PO DAILY [facility] Last Admin: 12/17/18 09:46 Dose: 5 mg Prochlorperazine Edisylate (Compazine Inj*) 5 mg IV Q6H PRN PRN Reason: NAUSEA/VOMITING Senna (Senokot 8.6 Mg Tab*) 1 tab PO DAILY PRN PRN Reason: CONSTIPATION Vital Signs - 8 hr 12/18/18 12/18/18 12/18/18 03:40 05:50 07:05 Temperature 98.1 F 98.1 F Pulse Rate 89 98 Respiratory 16 16 18 Rate Blood Pressure 147/88 131/72 (mmHg) O2 Sat by Pulse 99 96 Oximetry Oxygen Devices in Use Now: None Appearance: NAD Eyes: No Scleral Icterus Ears/Nose/Mouth/Throat: NL Teeth, Lips, Gums Neck: NL Appearance and Movements; NL JVP Respiratory: Symmetrical Chest Expansion and Respiratory Effort, Clear to Auscultation Cardiovascular: NL Sounds; No Murmurs; No JVD, RRR Abdominal: - - Soft NT AHSAN drain in place Lymphatic: No Cervical Adenopathy Extremities: No Edema Skin: No Rash or Ulcers Neurological: Alert and Oriented x 3 Result Diagrams: 12/17/18 05:54 12/16/18 09:08 Microbiology and Other Data: . Assess/Plan/Problems-Billing Assessment: 58 F PMHx HTN, breast CA s/p mastectomy, XRT, and chemo; obesity; RA on chronic prednisone presents from [facility] with sepsis 2/2 to intra-abdominal abscesses thought to be a complication from appendicitis. She is s/p washout and drainage 12/13 and still has AHSAN drain in place - Patient Problems (1) Intra-abdominal abscess Current Visit: Yes Status: Acute Code(s): K65.1 - PERITONEAL ABSCESS SNOMED Code(s): 26458352 Comment: -Thought to be 2/2 to complication of appendicitis -POD5 open appendectomy, still with AHSAN drain -Appreciate surgical input, close to d/c -Abx Day 7/_ (14?) on 12/18 on Cefipime/Flagyl, can transition to oral-ideally FQ /flagyl OR sulfa/Flagyl or even Augmentin/Flagyl, though she has allergy to FQ and sulfa and PCN. Her micro is showing anerobes and Ecoli which is [place]. Flagyl will cover the anerobes with good gut penetration, pt feels cipro allergy may be misreported, and alleryg is rash not anaphylaxis thus reasonable to try and is willing to try levaquin, if tolerates will d/c on Levaquin/Flagyl -Consider using ESR CRP to tailor discontinuation -Pt with increased appetite, tolerating advancing diet, abd pain controlled; continues to have daily BM (2) Sepsis Current Visit: Yes Status: Acute Comment: - Resolved (3) Abnormal urinalysis Current Visit: Yes Status: Acute Code(s): R82.90 - UNSPECIFIED ABNORMAL FINDINGS IN URINE SNOMED Code(s): 536593667 Comment: - Asymptomatic. Urine culture is negative (4) Hypertension Current Visit: Yes Status: Acute Code(s): I10 - ESSENTIAL (PRIMARY) HYPERTENSION SNOMED Code(s): 25149065 Comment: - SBP 110s - Continue furosemide, metoprolol, home medications (5) Rheumatoid arthritis Current Visit: Yes Status: Acute Code(s): M06.9 - RHEUMATOID ARTHRITIS, UNSPECIFIED SNOMED Code(s): 77359792 Comment: - Holding home MTX in setting of infection - Patient takes chronic prednisone for RA - Continue PO prednisone 5mg, as at home (6) DVT prophylaxis Current Visit: Yes Status: Acute Code(s): Z29.9 - ENCOUNTER FOR PROPHYLACTIC MEASURES, UNSPECIFIED SNOMED Code(s): 632622325 Comment: -continue heparin subq TID (7) Full code status Current Visit: Yes Status: Acute Code(s): Z78.9 - OTHER SPECIFIED HEALTH STATUS SNOMED Code(s): 378727209 Comment: Status and Disposition: Inpatient. Anticipate discharge to home when medically stable.
[2018-12-18] MEDS: Furosemide TAB* 20 MG PO SCH (08:42)
[2018-12-18] MEDS: predniSONE TAB* 5 MG PO SCH (08:42)
[2018-12-18] MEDS: Metoprolol Tartrate TAB* 25 MG PO SCH ×2 (08:42→21:33)
[2018-12-18] MEDS ORDERED: Levofloxacin 750 MG IVPREMIX(* 750 MG/150 ML BAG IVPB ONE (10:10)
[2018-12-18] MEDS: Cefepime 2 GM in Dextrose(*) 2 GM/50 ML BAG IV SCH (10:24)
--- NOTE | 2018-12-18 10:44 | PN ---
Progress Note - Progress Note Date of Service: 12/18/18 SOAP: Subjective: Pt seen and examined. Feels well. no pain Objective: Temp Pulse Resp BP Pulse Ox 98.1 F 98 18 131/72 96 12/18/18 07:05 12/18/18 07:05 12/18/18 08:39 12/18/18 07:05 12/18/18 07:05 a and o x3, nad abdo: soft/ ND/ NT AHSAN scant brown fluid Packing changed, good granulation tissue ext wnl Assessment: POD 5 ex lap, appy Plan: wound care PO abx- per hosp; will try levo today AHSAN for 1 more day
[2018-12-18] MEDS ORDERED: Ondansetron TAB* 4 MG PO ONE (12:00)
[2018-12-18] MEDS: Pantoprazole IV* 40 MG IV SCH (12:05)
[2018-12-18] MEDS ORDERED: Levofloxacin TAB* 750 MG PO ONE (14:27)
[2018-12-18] MEDS ORDERED: diPHENhydraMINE IV* 50 MG/ML 1 ml VIAL (BENADRYL) SLOW PUSH ONE (14:28)
--- NOTE | 2018-12-18 14:34 | PN ---
Hospitalist Progress Note Date of Service: 12/18/18 Spoke with pt and her family, allergy to cipro in the past is itching of hands, never mouth swelling. Willing to try oral levofloxacin with benadryl before
[2018-12-19] MEDS: metroNIDAZOLE IV 500 MG/100ML* 500 MG/100 ML BAG IVPB SCH ×2 (05:42→12:24)
[2018-12-19] MEDS: Heparin VIAL(*) 5000 UNITS/ML VIAL (FIVE THOUSAND) SUBCUT SCH (05:42)
[2018-12-19] MEDS: oxyCODONE/Acetamin 5/325 MG* TAB PO PRN ×2 (05:50→11:19)
[2018-12-19 06:21] LABS: Calcium 8.4 mg/dL (8.6-10.3)
[2018-12-19 06:22] LABS: Hematocrit 33 % (35-47); Hemoglobin 10.9 g/dL (12.0-16.0); Mean Corpuscular HGB Conc 33 g/dL (31-36); Mean Corpuscular Hemoglobin 31 pg (27-31); Mean Corpuscular Volume 94 fL (80-97); Mean Platelet Volume 7.4 fL (7.4-10.4); Platelet Count 415 10^3/uL (150-450); Red Blood Count 3.53 10^6 /uL (3.70-4.87); Red Cell Distribution Width 18 % (10-15)
[2018-12-19 06:27] LABS: BUN/Creatinine Ratio 10.9 (8-20); EGFR African American 115.7 (>60); EGFR Non-African American 95.6 (>60)
[2018-12-19] MEDS: Furosemide TAB* 20 MG PO SCH (08:16)
[2018-12-19] MEDS: Metoprolol Tartrate TAB* 25 MG PO SCH (08:16)
[2018-12-19] MEDS: Acetaminophen TAB* 325 MG PO PRN (08:16)
[2018-12-19] MEDS: predniSONE TAB* 5 MG PO SCH (08:16)
--- NOTE | 2018-12-19 10:45 | PN ---
Progress Note - Progress Note Date of Service: 12/19/18 SOAP: Subjective: Pt seen and examined. Feels well. no pain. Wants to go home Objective: Temp Pulse Resp BP Pulse Ox 98.3 F 93 18 108/63 96 12/19/18 07:56 12/19/18 07:56 12/19/18 08:17 12/19/18 07:56 12/19/18 07:56 a and o x3, nad abdo: soft/ ND/ NT AHSAN scant serous fluid in tubing; cloudy in bulb; 5cc last shift-- AHSAN removed Packing changed, good granulation tissue ext : edema b/l , no tenderness wbc up to 12K Assessment: POD 6 ex lap, appy Plan: wound care- packing placed and to be removed by pt on Thursday PO abx- levoflox, flagyl d/c home- f/u at office
[2018-12-19] MEDS: Pantoprazole IV* 40 MG IV SCH (11:15)
[2018-12-19 11:35] VITALS: BP 101/58
[2018-12-19] MEDS ORDERED: diPHENhydraMINE PO* 25 MG PO PRN (12:34)
--- NOTE | 2018-12-19 12:56 | PN ---
Hospitalist Progress Note Date of Service: 12/19/18 HD 8 on 12/19 58 F PMHx HTN, breast CA s/p mastectomy, XRT, and chemo; obesity; RA on chronic prednisone presents from [facility] with sepsis / to intra-abdominal abscesses thought to be a complication from appendicitis. She is s/p washout and drainage 12/13 and AHSAN drain removed Overnight no acute events, VSS Labs not done today, leukocytosis 12 This morning, pt feeling well, pain dimished, tolerting diet, making BM and flatus. No fevers no other concerns, would like to go home, akash has removed drain and reports pt is stable for dc PE Pleasant NAD RRR no MRG CTABL Soft TN ND No edema Medications reconcilied and to go home on Levofloxacin 750- daily and Metronidazole TID which she has toelrated for 7 days s/p d/c FU with surgery and primary care DC Summary is dictate with labs and studies
[2018-12-19] MEDS ORDERED: Levofloxacin TAB* 750 MG PO SCH (13:00)
--- NOTE | 2018-12-19 19:21 | DS ---
CC: KASH Antoine; Dr. Thiago Cool * DISCHARGE SUMMARY: DATE OF ADMISSION: 12/12/18 DATE OF DISCHARGE: 12/19/18 DISPOSITION AT THE TIME OF DISCHARGE: Stable to be discharged to home. PRIMARY CARE PHYSICIAN: KASH Antoine. SURGEON: Dr. Thiago Cool. PRIMARY DIAGNOSES: 1. Intraabdominal abscesses. 2. Sepsis. SECONDARY DIAGNOSES: 1. Hypertension. 2. History of breast cancer, status post mastectomy and radiation and chemo. 3. Obesity. 4. Rheumatoid arthritis, on chronic prednisone. MEDICATIONS AT TIME OF DISCHARGE: 1. Diphenhydramine 25 mg 1 tab p.o. daily 30 minutes prior to Levaquin. 2. Levofloxacin 750 mg 1 tab p.o. daily. 3. Metronidazole 500 mg p.o. t.i.d. for an additional 7 days status post discharge. Also note that is true for Levaquin. 4. Docusate 100 mg p.o. daily p.r.n. 5. Senna 8.6 mg p.o. daily. 6. Oxycodone/acetaminophen 5/325 one tab p.o. q.8 hours p.r.n. for severe pain. 7. Furosemide 20 mg p.o. daily. 8. Metoprolol 25 mg p.o. b.i.d. 9. Calcium with vitamin D 1 each p.o. daily. 10. Ferrous sulfate 325 mg p.o. b.i.d. 11. Folic acid 1 mg p.o. daily. 12. Meloxicam 7.5 mg p.o. daily. 13. Methotrexate 50 mg weekly. 14. May resume omeprazole 40 mg p.o. daily. 15. Prednisone 5 mg p.o. daily. Medication changes during this hospitalization were the addition of levofloxacin and metronidazole for an additional 7 days status post discharge, the addition of oxycodone/acetaminophen for a total of 3 days status post discharge for pain, the addition of bowel regimen docusate and senna, and the addition of p.r.n. diphenhydramine to take before levofloxacin. HISTORY OF PRESENT ILLNESS AND HOSPITAL COURSE: A 58-year-old female with the above past medical history, who presented on 12/12/18 from [facility] where she had been having right lower quadrant pain and urinary frequency along with fever for several days. In the [facility], a CT scan of the abdomen without contrast showed poorly defined air-fluid collection in the central pelvis slightly to the right of the midline measuring 4.8 cm and also 5 to 6 cm collection posterior to the bladder dome. She had leukocytosis and tachycardia and from [facility] was sent to our emergency room for further evaluation. In our emergency room, her vital signs were stable. We confirmed prior imaging, which showed intraabdominal abscesses and the patient was admitted for further evaluation and treatment. Her hospital course by problem is as follows: 1. Sepsis. The patient met septic criteria with tachycardia and leukocytosis. She was given sepsis bolus with IV fluids, and she was covered broadly with antibiotics. Her sepsis resolved by hospital day 2 with aggressive treatment. 2. Intraabdominal abscesses. This is the cause of her sepsis. There is some question that this was all associated with appendicitis. She was covered on cefepime and metronidazole. Surgery was consulted and ultimately underwent washout and drainage on 12/13/18 and AHSAN drain placement. Microbiology from 12/23 surgical procedure shows anaerobes and E. coli consistent with gut marleny. AHSAN drain continued to have drainage, although it was ultimately removed by the surgical team on 12/19/18. The patient is tolerating diet and making bowel movements. On 12/19/18, the patient was covered with 8 days of antibiotics on cefepime, Flagyl, oral challenge of fluoroquinolone class of Levaquin was trialed and the patient tolerated it with excellent results and that she can be discharged on Levaquin and Flagyl for an additional 7 to 10 days of antibiotic coverage. Consider surgical team to use ESR and CRP to tailor discontinuation or serial imaging as per what is appropriate in our guidelines. She is able to advance diet and her abdominal pain is controlled with p.r.n. Percocet and Tylenol. She has had daily bowel movements. 3. Hypertension. Her home medications of furosemide and metoprolol were continued. 4. Rheumatoid arthritis. Her home methotrexate was held in the setting of infection. It can be resumed on discharge. She also takes chronic prednisone which was continued. She has had no evidence of adrenal insufficiency or shock. 5. DVT prophylaxis: The patient is on heparin subcu. On the day of discharge, the patient is ambulating, tolerating diet, voiding freely. She understands clear instructions of antibiotics and the importance of following up with Surgery, which has been arranged for her by the surgical team to follow up with Dr. Cool as well as her primary care provider who can continue monitoring of her antibiotics and pain. Labs and studies done during this hospitalization: Abdomen and pelvis was performed on 12/12/18, which showed minimal sigmoid diverticulosis with question of sigmoid diverticulitis and multilocular collections of fluid with some areas of gas and also status post hysterectomy, operation done on . Procedure performed was open appendectomy, drainage of pelvic abscess and drain placement, performed by Dr. Thaigo Cool. Appendix was noted to have minimal inflammation and sigmoid colon was unremarkable. Micro performed during that time showed E. coli and bacteroides cultured from abscess directly, otherwise blood cultures and urine cultures with no growth to date during this hospitalization. Labs on day of discharge, white blood cell count 12, hemoglobin 10, hematocrit 33, platelets 415, this is down from presentation with a white blood cell count of 19.3, hemoglobin of 11.5, hematocrit 34, and platelets of 295 on admission. BMP within wholly normal with sodium 138, potassium 4, chloride 107, carbon dioxide 26, BUN 7, creatinine 0.64, and glucose 115. ITEMS TO FOLLOW UP ON STATUS POST DISCHARGE: 1. Intraabdominal abscesses. Again whether this represented appendicitis versus diverticulitis unclear. She has had surgical drainage with AHSAN drain removed on 12/19/18. Procedure was performed on 12/13/18. She needs surgical followup. Antibiotics are prescribed and for intraabdominal coverage, it is appropriate for her to be on Levaquin and Flagyl t.i.d. for an additional 7 days status post discharge, although this may need to be continued pending her clinical progress. Pain control was prescribed by Medicine and can be further altered by Surgery as they feel appropriate. 2. Hypertension. Home medications are continued. 3. Rheumatoid arthritis. The patient is on methotrexate as well as prednisone , which are considered immune modulating. It is reasonable to restart them since she seems well into her recovery, although if there is any concern of recurrence, methotrexate should be held in the future. TIME SPENT: 45 minutes were spent on the planning of this discharge with over half of that spent directly at the bedside of the patient providing direct patient care. If there are any questions about the care of this patient prior or during this hospitalization, please do not hesitate to reach out and contact me directly, my cellphone is [phone]. Furthermore, the surgeon that performed her procedure was Dr. Thiago Cool, the surgeon who removed her AHSAN drain was Dr. Manjit Krishnamurthy who elected that the patient be discharged on 12/19/18. Hospitalist team coordinated for her discharge planning. This plan of care was discussed with the patient and family who agree to return to home, are clear on their antibiotic instructions, have no further questions, and understand to return to the emergency room if there is any fever, worsening abdominal pain. [id number]/CPS #: [id number] MTDD
== END 2018-12-19 14:30 | disposition home or self-care (01) | DRG 710 ==
LOC: ED 18:50 → MEDTELE 23:06 → SSU 12-13 20:00
PROVIDERS: ADMIT Internal Medicine; ATTEND Internal Medicine
PROC: 0W9G00Z Drainage of Peritoneal Cavity with Drainage Device, Open Approach (ICD-10-PCS; 2018-12-13)
PROC: 0DTJ0ZZ Resection of Appendix, Open Approach (ICD-10-PCS; principal; 2018-12-13 13:45)
DX: A41.9 Sepsis, unspecified organism (principal); K35.21 Acute appendicitis with generalized peritonitis, with abscess; K57.20 Diverticulitis of large intestine with perforation and abscess without bleeding; Z68.41 Body mass index [BMI] 40.0-44.9, adult; I10 Essential (primary) hypertension; M06.9 Rheumatoid arthritis, unspecified; E66.9 Obesity, unspecified; B96.6 Bacteroides fragilis [B. fragilis] as the cause of diseases classified elsewhere; B96.20 Unspecified Escherichia coli [E. coli] as the cause of diseases classified elsewhere; Z96.641 Presence of right artificial hip joint; K57.30 Diverticulosis of large intestine without perforation or abscess without bleeding; Z88.1 Allergy status to other antibiotic agents; Z88.0 Allergy status to penicillin; Z88.8 Allergy status to other drugs, medicaments and biological substances; Z88.2 Allergy status to sulfonamides; Z85.3 Personal history of malignant neoplasm of breast; Z72.89 Other problems related to lifestyle; Z87.891 Personal history of nicotine dependence; Z82.49 Family history of ischemic heart disease and other diseases of the circulatory system; Z83.3 Family history of diabetes mellitus; Z56.0 Unemployment, unspecified; Z92.3 Personal history of irradiation; Z92.21 Personal history of antineoplastic chemotherapy; Z90.710 Acquired absence of both cervix and uterus; Z90.10 Acquired absence of unspecified breast and nipple; Z80.3 Family history of malignant neoplasm of breast; Z79.52 Long term (current) use of systemic steroids
CPT/HCPCS: 36415; 74176; 80048; 80053; 81003; 81015; 83605; 83735; 85025; 85027; 85610; 85730; 86140; 87040; 87070; 87073; 87076; 87077; 87086; 87185; 87186; 87205; 87640; 87641; 88304; 99284; A9270-GY; J0330; J0692; J0696; J0780; J1200; J1644; J1720; J1885; J1940; J2250; J2270; J2405; J2704; J3010; J3475; J3490; J7512